=== PATIENT | female | born 1950 | race Hispanic/Latino ===

== ENCOUNTER 2022-07-04 03:56 | Emergency (ER) | payer OTHER ==
--- OUTSIDE RECORDS SUMMARY | 2022-07-04 03:59 | XMS REPORT | Clinical Summary ---
:1950 Author Organization [facility] MD [facility] Address [address] [place] [address] Care Team Providers Name Role Phone Laron Lambert MD Unavailable Raj Mansfield MD Primary Care Provider Allergies Active Allergy Reactions Severity Noted Date Comments Levofloxacin GI Intolerance 01/02/2021 Medications Medication Sig Dispensed Refills Start End Date Status Date atorvastatin daily. 5 Active (LIPITOR) 10 mg 9 tablet losartan-hydrochlor daily. 0 Active othiazide (HYZAAR) 100-25 mg per tablet gabapentin Take 3 270 capsule 2 Active (NEURONTIN) 300 mg capsules (900 0 capsuleIndications: mg) by mouth Malignant neoplasm 3 (three) of endometrium, times a day. Encounter for examination prior to antineoplastic chemotherapy, Hypokalemia, Hypomagnesemia, Generalized anxiety disorder, Pain, Nausea with vomiting, Malignant neoplasm of right kidney, except renal pelvis, Encounter for antineoplastic chemotherapy, Bilateral hearing loss, not otherwise specified metFORMIN twice daily. 0 Active (GLUCOPHAGE) 1000 1 mg tablet ferrous sulfate 324 0 Active mg (65 mg iron) 1 TbEC citalopram (CeleXA) TAKE 1 TABLET 0 Active 10 mg tablet BY MOUTH 2 EVERY DAY FOR 90 DAYS ofloxacin (FLOXIN) INSTILL 4 0 03/24/20 D iscontinued 0.3% otic solution DROPS INTO 2 22 (Not Applicable) LEFT EAR 2 TIMES A DAY Active Problems Problem Noted Date Screening for malignant neoplasms of colon 04/09/2021 Overview: Added automatically from request for alejandra lr [id number] Renal mass 12/31/2020 Anemia 12/31/2020 Clear cell carcinoma of kidney 12/31/2020 Chronic diarrhea 08/13/2020 History of malignant neoplasm of endometrium 0 Pain in left ankle 08/29/2019 Generalized muscle weakness 07/22/2019 Cancer-related fatigue 07/22/2019 Drug-induced polyneuropathy 07/18/2019 Hypomagnesemia 05/16/2019 Generalized anxiety disorder 05/16/2019 Paraparesis 05/02/2019 Hypokalemia 03/15/2019 Malignant neoplasm of right kidney, except renal pelvi s 03/15/2019 Hypertension 02/11/2019 Hyperlipidemia 02/11/2019 Type 2 diabetes mellitus 02/11/2019 Gallstone 02/11/2019 H/O: section 02/11/2019 Overview: x4 Postmenopausal atrophic vaginitis 02/11/2019 Hearing loss 02/11/2019 Malignant neoplasm of endometrium 02/11/2019 Cancer Staging: Clinical stage from 03/01: Stage IIIC1 (Primary) - Signed by Raj Mansfield MD on 04/11/2019 Encounters Date Type Specialty Care Team Description 03/31/2022 Orders Only Urology Aleksandra Olvera Malignant ne oplasm A., PA of unspecified kidney, except renal pelvis (Primary Dx) 03/24/2022 Office Visit Gynecology Raj Mansfield MD Malignant neoplasm of endometrium (Primary Dx) 03/24/2022 Office Visit Urology Aleksandra Olvera Malignant ne oplasm A., PA of unspecified kidney, except renal pelvis 03/24/2022 Ancillary Procedure Radiology Aleksandra Olverat neoplasm A., PA of unspecified kidney, except renal pelvis 03/24/2022 Ancillary Procedure Radiology Aleksandra Olvera nant neoplasm A., PA of unspecified kidney, except renal pelvis 03/24/2022 Travel 02/28/2022 Telephone Urology Radha Aleaxndra RN 02/19/2022 Orders Only Urology Aleksandra Olvera Malignant ne oplasm A., PA of unspecified kidney, except renal pelvis (Primary Dx) 02/18/2022 Orders Only Gynecology Maya Burgos PA Malignant ne oplasm of endometrium (Primary Dx) 02/06/2022 Telephone Surgical Oncology Danielle Scott RN 12/16/2021 Telephone Surgical Oncology Danielle Scott, RN 11/12/2021 Telephone Surgical Oncology Danielle Scott, RN 10/14/2021 Telephone Surgical Oncology Reanna Tucker, RN 07/12/2021 Telemedicine Urology Lenka Ortiz MD Renal mass after 07/04/2021 Immunizations Name Administration Dates Next Due Pfizer SARS-CoV-2 Vaccination (Purple Cap) 09/01/2020, 0212/2020 Surgical History Surgery Date Site/Laterality Comments HERNIA REPAIR 07/06/2017 - umbilical hernia 07/05/2018 repair CHOLECYSTECTOMY 07/06/2014 - lap 07/05/2015 SECTION, CLASSIC X4 ROBOTIC LAPAROSCOPIC 03/01/2019 STAGE IIIC serous HYSTERECTOMY carcinoma ABDOMINAL ADHESION SURGERY 03/01/2019 BILATERAL SALPINGOOPHORECTOMY 03/01/2019 MAMMOGRAM HISTORICAL 12/04/2018 - 01/02/2019 Medical History Medical History Date Comments Hypertension Hearing loss Menopause late 40s Uterine leiomyoma Diabetes mellitus Chronic obstructive pulmonary disease Family History Medical History Relation Name Comments Stomach cancer Brother Relation Name Status Comments Brother Social History Tobacco Use Types Packs/Day Years Used Date Smoking Tobacco: Former Cigarettes 1.5 0 1964 - 2015 Smokeless Tobacco: Never Alcohol Use Standard Drinks/Week Comments Not Currently 0 (1 standard drink = 0.6 oz pure alcoho l) Sex Assigned at Date Recorded Female 02/13/2019 7:44 AM CDT Job Start Date Occupation Industry Not on file Not on file Not on file Obstetrics History Para Term AB IAB SAB Ectopic Multiple Living Live Births 4 4 Date Outcome GA Total Labor/2nd/3rd Weight Sex Delivery Anes PTL Marge A 1 A5 Name Clin Labor Para Para Para Para Comments All C/S deliveries Last Filed Vital Signs Vital Sign Reading Time Taken Comments Blood Pressure 136/82 03/24/2022 11:30 AM CDT Pulse 96 03/24/2022 11:30 AM CDT Temperature 36.6 C (97.8 F) 03/24/2022 11:30 AM CDT Respiratory Rate 18 03/24/2022 11:30 AM CDT Oxygen Saturation - - Inhaled Oxygen Concentration - - Weight 87.8 kg (193 lb 9 oz) 03/24/2022 11:30 AM CDT Height - - Body Mass Index 39.28 12/30/2020 5:01 PM CDT Plan of Treatment Date Type Specialty Care Team Description 09/22/2022 Lab Lab Raj Mansfield M D [address] [place], [place] [address] (Wo rk) 09/22/2022 Follow-Up Gynecology Raj Mansfield M D [address] [place], [place] [address] (Wo rk) 03/22/2023 Appointment Radiology Aleksandra Olvera PA [address] [place], [place] [address] (Wo rk) 03/23/2023 Ancillary Procedure Radiology Dasha Olvera PA [address] [place], [place] [address] (Wo rk) 03/23/2023 Lab Lab Aleksandra Olvera PA [address] [place] [address] (Wo rk) 03/23/2023 Follow-Up Urology Aleksandra Olvera PA [address] [place], [place] [address] (Wo rk) Health Maintenance Due Date Last Done Comments COVID-19 Vaccination (3 - Pfizer risk 09/29/2020 09/01/2020 , 08/11/2020 series) Procedures Procedure Name Priority Date/Time Associated Comments Diagnosis FRACTIONATED BILIRUBIN Routine 03/24/2022 10:27 Malignant neop lasm Results for this AM CDT of unspecified procedure are in kidney, except the results renal pelvis section. TOTAL PROTEIN Routine 03/24/2022 10:27 Malignant neoplasm Resu lts for this AM CDT of unspecified procedure are in kidney, except the results renal pelvis section. ASPARTATE Routine 03/24/2022 10:27 Malignant neoplasm Resul ts for this AMINOTRANSFERASE AM CDT of unspecified procedure are in kidney, except the results renal pelvis section. ALANINE AMINOTRANSFERASE Routine 03/24/2022 10:27 Malignant ne oplasm Results for this AM CDT of unspecified procedure are in kidney, except the results renal pelvis section. ALKALINE PHOSPHATASE Routine 03/24/2022 10:27 Malignant neopla sm Results for this AM CDT of unspecified procedure are in kidney, except the results renal pelvis section. ALBUMIN LEVEL Routine 03/24/2022 10:27 Malignant neoplasm Resu lts for this AM CDT of unspecified procedure are in kidney, except the results renal pelvis section. CALCIUM LEVEL TOTAL Routine 03/24/2022 10:27 Malignant neoplas m Results for this AM CDT of unspecified procedure are in kidney, except the results renal pelvis section. .GLOMERULAR FILTRATION Routine 03/24/2022 10:27 Malignant neop lasm Results for this RATE AM CDT of unspecified procedure are in kidney, except the results renal pelvis section. SERUM CREATININE Routine 03/24/2022 10:27 Malignant neoplasm R esults for this AM CDT of unspecified procedure are in kidney, except the results renal pelvis section. ELECTROLYTE PANEL Routine 03/24/2022 10:27 Malignant neoplasm Results for this AM CDT of unspecified procedure are in kidney, except the results renal pelvis section. BLOOD UREA NITROGEN Routine 03/24/2022 10:27 Malignant neoplas m Results for this AM CDT of unspecified procedure are in kidney, except the results renal pelvis section. GLUCOSE LEVEL Routine 03/24/2022 10:27 Malignant neoplasm Resu lts for this AM CDT of unspecified procedure are in kidney, except the results renal pelvis section. COMPLETE BLOOD COUNT W/ Routine 03/24/2022 10:27 Malignant collins plasm Results for this INDICES AM CDT of unspecified procedure are in kidney, except the results renal pelvis section. COMPREHENSIVE METABOLIC Routine 03/24/2022 10:27 Malignant collins plasm PANEL AM CDT of unspecified kidney, except renal pelvis CANCER ANTIGEN 125 Routine 03/24/2022 10:27 Malignant neoplasm Results for this AM CDT of endometrium procedure are in the results section. XR CHEST 2 VW Routine 03/24/2022 9:03 Malignant neoplasm Resul ts for this AM CDT of unspecified procedure are in kidney, except the results renal pelvis section. CT ABDOMEN W CONTRAST Routine 03/24/2022 8:57 Malignant neopl asm Results for this AM CDT of unspecified procedure are in kidney, except the results renal pelvis section. POC CREATININE Routine 03/24/2022 8:07 Results fo r this AM CDT procedure are i n the results section. after 07/04/2021 Results .Serum Creatinine (03/24/2022 10:27 AM CDT) athologist Signature Creatinine 0.57 0.51 - 0.95 [place] mg/dL Comment: Testing performed at [facility], [address] [place] [address] Specimen Anatomical Collection Method Collection Time Receive d Time (Source) Location / / Volume Laterality Blood 03/24/2022 10:27 03/24/2022 AM CDT 10:27 AM CDT Aleksandra CRUZ LAB BLOOD ORDERABLES Performing Organization Address City/State/ZIP Code Phon e Number [address] Glomerular Filtration Rate (03/24/2022 10:27 AM CDT) athologist Signature eGFR-AA 109 >=60 [place] mL/min/1.73 sq. m Comment: Normal eGFR >= 60 mL/min/1.73 m2 Note: The eGFR is calculated using the C KD-EPI equation. The eGFR declines with age. eGFR <60 mL/min/1.73 m2 is considered as "decreased". This equation should only be used for patients 18 and older. According to the National Kid[employer] ion's Kidney Disease Outcome Quality Initiative (KDOQI) classification and 2012 Kidney Disease Improving Global Outcomes (KDIGO) Clinical Practice Guideline, the stage of CKD should be categorized based on estimated GFR. Stage Description GFR mL/min/1. 73 m2 1 Normal or high GFR >=90 2 Mildly decreased GFR 60-89 3a Mildly to moderately decreased GFR 45-59 3b Moderately to severely decreased GFR 30-44 4 Severely decreased GFR 15-29 5 Kidney failure <15 Testing performed at [facility], [address] [place], [place] [id number] eGFR-MALAIKA 94 >=60 mL/min/1.73 sq. m ABDI Jacqueline AND Comment: Normal eGFR >= 60 mL/min/1.73 m2 Note: The eGFR is calculated using the C KD-EPI equation. The eGFR declines with age. eGFR <60 mL/min/1.73 m2 is considered as "decreased". This equation should only be used for patients 18 and older. According to the National [employer] ion's Kidney Disease Outcome Quality Initiative (KDOQI) classification and 2012 Kidney Disease Improving Global Outcomes (KDIGO) Clinical Practice Guideline, the stage of CKD should be categorized based on estimated GFR. Stage Description GFR mL/min/1. 73 m2 1 Normal or high GFR >=90 2 Mildly decreased GFR 60-89 3a Mildly to moderately decreased GFR 45-59 3b Moderately to severely decreased GFR 30-44 4 Severely decreased GFR 15-29 5 Kidney failure <15 Testing performed at [facility], [address] [place] [address] Specimen Anatomical Collection Method Collection Time Receive d Time (Source) Location / / Volume Laterality Blood 03/24/2022 10:27 03/24/2022 AM CDT 10:27 AM CDT Aleksandra CRUZ LAB BLOOD ORDERABLES Performing Organization Address City/State/ZIP Code Phon e Number [address] Fractionated Bilirubin (03/24/2022 10:27 AM CDT) athologist Signature Bili Total <0.3 <=1.2 mg/dL [place] Comment: Direct and indirect bilirubin will not b e reported when Total bilirubin result is <0.3 mg/dL Indocyanine Green (ICG) may cause falsel y elevated bilirubin results. Total and direct bilirubin must not be measured from samples containing indocyanine green. False elevation of total bilirubin can b e seen in patients with IgG concentrations above 28 g/L. Testing performed at [facility], [address] [place] [address] Specimen Anatomical Collection Method Collection Time Receive d Time (Source) Location / / Volume Laterality Blood 03/24/2022 10:27 03/24/2022 AM CDT 10:27 AM CDT Aleksandra CRUZ LAB BLOOD ORDERABLES Performing Organization Address City/State/ZIP Code Phon e Number [address] (ABNORMAL) Complete Blood Count w/o Differential (03/24/2022 10:27 AM CDT) athologist Signature WBC 9.0 4.0 - 11.0 [place] [facility] K/uL Comment: All components of the CBC perfo rmed at [facility], [address] [place] [address] RBC 4.19 4.00 - 5.50 M/uL [place] Comment: As part of CBC testing performe d at [facility], [address] [place] [address] Hgb 11.5 (L) 12.0 - 16.0 gm/dL [place] Comment: As part of CBC or as an individ ual orderable testing performed at [facility], [address] [place] [address] Hct 35.4 (L) 37.0 - 47.0 % [place] Comment: As part of CBC or as an individ ual orderable testing performed at [facility], [address] [place] [address] MCV 84 82 - 98 fL [place] Comment: As part of CBC testing performe d at [facility], [address] [place] [address] MCH 27.4 27.0 - 31.0 pg [place] Comment: As part of CBC testing performe d at [facility], [address] [place] [address] MCHC 32.5 31.0 - 36.0 gm/dL [place] Comment: As part of CBC testing performe d at [facility], [address] [place] [address] RDW-SD 44.1 35.1 - 46.3 fL [place] Comment: As part of CBC testing performe d at [facility], [address] [place] [address] RDW-CV 14.7 12.0 - 15.5 % [place] Comment: As part of CBC testing performe d at [facility], [address] [place], [place] [address] Platelet count 268 140 - 440 K/uL [place] Comment: As part of CBC or as an individ ual orderable testing performed at [facility], [address] [place] [address] MPV 8.9 4.0 - 10.4 fL [place] Comment: As part of CBC testing performe d at [facility], [address] [place], [place] [address] Specimen Anatomical Collection Method Collection Time Receive d Time (Source) Location / / Volume Laterality Blood 03/24/2022 10:27 03/24/2022 AM CDT 10:27 AM CDT Aleksandra CRUZ LAB BLOOD ORDERABLES Performing Organization Address City/[facility] Code Phon e Number [address] [place] 125 (03/24/2022 10:27 AM CDT) P athologist Signature [place] 125 6.5 <=38.0 U/mL [place] Comment: Results greater than 11,500.0 U/L may no t be reliable due to matrix effect with extended dilution as it exceeds the airline radio operator s recommended limit. Caution should be exercised when interpreting such values and done in conjunction with cli nical context. Reference intervals are not available fo r male patients. Results should be interpreted in conjunction with clinical context. This test is measured by electrochemilum inescence immunoassay on Connie Michelle immunoassay analyzers. Results obtained in different methods are not interchangeable. Testing performed at [facility], [address] [place] [id number] Specimen Anatomical Collection Method Collection Time Receive d Time (Source) Location / / Volume Laterality Blood 03/24/2022 10:27 03/24/2022 AM CDT 10:27 AM CDT Maya CRUZ LAB BLOOD ORDERABLES Performing Organization Address City/[facility] Phon e Number [place] [phone] [place] [address] BUN (03/24/2022 10:27 AM CDT) athologist Signature BUN 13 6 - 23 mg/dL [place] Comment: Testing performed at [facility], [address] [place] [address] Specimen Anatomical Collection Method Collection Time Receive d Time (Source) Location / / Volume Laterality Blood 03/24/2022 10:27 03/24/2022 AM CDT 10:27 AM CDT Aleksandra CRUZ LAB BLOOD ORDERABLES Performing Organization Address City/State/ZIP Code Phon e Number [address] ALT (03/24/2022 10:27 AM CDT) athologist Signature ALT 16 <=33 U/L [place] Comment: Testing performed at [facility], [address] [place] [address] Specimen Anatomical Collection Method Collection Time Receive d Time (Source) Location / / Volume Laterality Blood 03/24/2022 10:27 03/24/2022 AM CDT 10:27 AM CDT Aleksandra CRUZ LAB BLOOD ORDERABLES Performing Organization Address City/State/ZIP Code Phon e Number [address] Aspartate Aminotransferase (03/24/2022 10:27 AM CDT) athologist Signature AST 15 <=32 U/L [place] Comment: Testing performed at [facility], [address] [place] [address] Specimen Anatomical Collection Method Collection Time Receive d Time (Source) Location / / Volume Laterality Blood 03/24/2022 10:27 03/24/2022 AM CDT 10:27 AM CDT Aleksandra CRUZ LAB BLOOD ORDERABLES Performing Organization Address City/State/ZIP Code Phon e Number [address] Total Protein (03/24/2022 10:27 AM CDT) athologist Signature Total Protein 7.4 6.4 - 8.3 [place] g/dL Comment: Testing performed at [facility], [address] [place] [address] Specimen Anatomical Collection Method Collection Time Receive d Time (Source) Location / / Volume Laterality Blood 03/24/2022 10:27 03/24/2022 AM CDT 10:27 AM CDT Aleksandra CRUZ LAB BLOOD ORDERABLES Performing Organization Address City/State/ZIP Code Phon e Number [address] Alkaline Phosphatase (03/24/2022 10:27 AM CDT) athologist [facility] Alk Phos 83 35 - 104 U/L [place] Comment: Testing performed at [facility], [address] [place] [address] Specimen Anatomical Collection Method Collection Time Receive d Time (Source) Location / / Volume Laterality Blood 03/24/2022 10:27 03/24/2022 AM CDT 10:27 AM CDT Aleksandra CRUZ LAB BLOOD ORDERABLES Performing Organization Address City/State/ZIP Code Phon e Number [address] (ABNORMAL) Glucose Level (03/24/2022 10:27 AM CDT) athologist Signature Glucose Level 133 (H) 70 - 99 [place] mg/dL Comment: Effective 01/30/16, the glucose reference intervals have been updated based on [place] [employer] guidelines (Standards of Medical Care in Diabetes 2016. Diabetes Care 2016; 39: S13-S22). Fasting blood glucose: Normal: 70-99 mg/dL Impaired fasting glucose (increased risk for diabetes or pre-diabetes): 100- 125 mg/dL Diabetes mellitus: >/=126 mg/dL Random blood glucose: Normal: 70-199 mg/dL Note: Random glucose >100 mg/dL is assoc iated with increased risk for diabetes Testing performed at [facility], [address] [place] [address] Specimen Anatomical Collection Method Collection Time Receive d Time (Source) Location / / Volume Laterality Blood 03/24/2022 10:27 03/24/2022 AM CDT 10:27 AM CDT Aleksandra CRUZ LAB BLOOD ORDERABLES Performing Organization Address City/[facility]/ZIP [place] [address] [place] [address] Calcium Level (03/24/2022 10:27 AM CDT) P athologist Signature Calcium Lvl 9.4 8.4 - 10.2 [place] mg/dL Comment: Testing performed at [facility], [address] [place] [address] Specimen Anatomical Collection Method Collection Time Receive d Time (Source) Location / / Volume Laterality Blood 03/24/2022 10:27 03/24/2022 AM CDT 10:27 AM CDT Aleksandra CRUZ LAB BLOOD ORDERABLES Performing Organization Address City/[facility]/ZIP Code Phon e Number [place] [phone] [place] [address] Albumin Level (03/24/2022 10:27 AM CDT) athologist Signature Albumin Lvl 4.2 3.5 - 5.2 [place] gm/dL Comment: Testing performed at [facility], [address] [place], [place] [id number] Specimen Anatomical Collection Method Collection Time Receive d Time (Source) Location / / Volume Laterality Blood 03/24/2022 10:27 03/24/2022 AM CDT 10:27 AM CDT Aleksandra CRUZ LAB BLOOD ORDERABLES Performing Organization Address City/State/ZIP Code Phon e Number [address] Electrolyte Panel (03/24/2022 10:27 AM CDT) P athologist Signature Sodium Lvl 140 136 - 145 [place] mEq/L Comment: Testing performed at [facility], [address] [place], [place] [id number] Potassium Lvl 3.5 3.5 - 5.1 mEq/L [place] Comment: Testing performed at [facility], [address] [place] [address] Chloride 100 98 - 107 mEq/L [place] Comment: Testing performed at [facility], [address] [place] [address] CO2 26 22 - 29 mEq/L [place] Comment: Testing performed at [facility], [address] [place] [id number] Anion Gap 14 4 - 14 mEq/L [place] Comment: Testing performed at [facility], [address] [place] [address] Specimen Anatomical Collection Method Collection Time Receive d Time (Source) Location / / Volume Laterality Blood 03/24/2022 10:27 03/24/2022 AM CDT 10:27 AM CDT Aleksandra CRUZ LAB BLOOD ORDERABLES Performing Organization Address City/State/[place] [address] [place] [address] X-ray Chest 2 Views (03/24/2022 9:03 AM CDT) Anatomical Region Laterality Modality Chest Digital Radiography Specimen (Source) Anatomical Collection Method Collection Time Re ceived Time Location / / Volume Laterality 03/24/2022 9:05 AM CDT Impressions 03/24/2022 9:08 AM CDT 1. Almost complete resolution of bilateral lower lung radiopacities, likely pneumonia and/or subsegmental atelectasis. 2. No metastatic disease. Narrative 03/24/2022 9:08 AM CDT FULL RESULT: Examination: XR Chest, 2 Views, 9:03 AM. Clinical History: Renal cell carcinoma. Indication: Restaging. Comparison: Portable AP chest, 12/29/2020 . Technique: PA, lateral and dual-energy c hest radiographs, 03/24/2022. Findings: Since the prior study, the bilateral low er lung radiopacities have mostly resolved. Minimal left basilar lung radiopacities still persist. No pleural effusion is present. The heart is mildly enlarged wi th atherosclerotic changes in the thorac ic aorta. Degenerative changes are present in the thoracic spine. Generalized osteoporosis is seen. Procedure Note Jaycob Siddiqi MD - 03/24/2022Formatti ng of this note might be different from the original. FULL RESULT: Examination: XR Chest, 2 Views, 2 9:03 AM. Clinical History: Renal cell carcinoma. Indication: Restaging. Comparison: Portable AP chest, 12/29/2020 . Technique: PA, lateral and dual-energy c hest radiographs, 03/24/2022. Findings: Since the prior study, the bilateral low er lung radiopacities have mostly resolved. Minimal left basilar lung radiopacities still persist. No pleural effusion is present. The heart is mildly enlarged with atherosclerotic changes in the thoracic aorta. Degenerative changes are present in the thoracic spine. Generalized osteoporosis is seen. IMPRESSION: 1. Almost complete resolution of bilater al lower lung radiopacities, likely pneumonia and/or subsegmental atelectasis. 2. No metastatic disease. Aleksandra CRUZ IMG DIAGNOSTIC IMAGING ORDER JUAN CT Abdomen with Contrast (03/24/2022 8:57 AM CDT) Anatomical Region Laterality Modality Abdomen Computed Tomography Specimen (Source) Anatomical Collection Method Collection Time Re ceived Time Location / / Volume Laterality 03/24/2022 10:00 AM CDT Impressions 03/24/2022 10:50 AM CDT 1 cm nodule at the left lung base not cl early present on previous exams. However, some of the prior exams do not include this portion of the lung bases. Recommend further evaluation with dedicated chest CT and possible tissue sampling. Right retroperitoneal hematoma as nearly resolved with some minimal residual infiltrative changes. Ablation changes at the inferior right kidney have significantly decreased in size during the interval. No evidence for metastatic disease in th e abdomen. Fatty infiltration of the liver. Narrative 03/24/2022 10:50 AM CDT Examination: CT ABDOMEN W CONTRAST, 03/24 8:57 AM Clinical History: Malignant neoplasm of unspecified kidney, except renal pelvis Indication: history of renal ablation, c haracterize any disease in the abdomen or in the ablation site Comparison: 12/28/20 Technique: CT of the abdomen was perform ed with intravenous contrast. Findings: 1 cm nodule in the left lung base (3 ser ies 6). This appears new relative to 12/24. Small hiatal hernia. Lipoma in the duodenum. Fatty infiltrati on of the liver. 1 cm hypodensity with peripheral nodular enhancement likely hemangioma. Cholecystectomy change. Pancreas, spleen , and adrenals are unremarkable. No hydronephrosis. Cyst at the upper pole at the right kidney. At the inferior pole of the right kidney hypoattenuating area mt ures 2.1 x 1.9 cm. Previously 5.7 x 4.7 cm. Adjacent retroperitoneal hematoma has nearly resolved with few retroperitoneal infiltrative changes. No enlarged para aortic lymph nodes. No dilated loops of bowel or ascites in the abdomen. Degenerative changes in the spine. Procedure Note Antonella Manning MD - 03/24/2022 Examination: CT ABDOMEN W CONTRAST, 03/24 8:57 AM Clinical History: Malignant neoplasm of unspecified kidney, except renal pelvis Indication: history of renal ablation, c haracterize any disease in the abdomen or in the ablation site Comparison: 12/28/20 Technique: CT of the abdomen was perform ed with intravenous contrast. Findings: 1 cm nodule in the left lung base (3 ser ies 6). This appears new relative to 12/24. Small hiatal hernia. Lipoma in the duodenum. Fatty infiltrati on of the liver. 1 cm hypodensity with peripheral nodular enhancement likely hemangioma. Cholecystectomy change. Pancreas, spleen , and adrenals are unremarkable. No hydronephrosis. Cyst at the upper pole at the right kidney. At the inferior pole of the right kidney hypoattenuating area measures 2.1 x 1.9 cm. Previously 5.7 x 4.7 cm. Adjacent re troperitoneal hematoma has nearly resolved with few retroperitoneal infiltrative changes. No enlarged para aortic lymph nodes. No dilated loops of bowel or ascites in the abdomen. Degenerative changes in the spine. IMPRESSION: 1 cm nodule at the left lung base not cl early present on previous exams. However, some of the prior exams do not include this portion of the lung bases. Recommend further evaluation with dedicated chest CT and possible tissue sampling. Right retroperitoneal hematoma as nearly resolved with some minimal residual infiltrative changes. Ablation changes at the inferior right kidney have significantly decreased in size during the interval. No evidence for metastatic disease in th e abdomen. Fatty infiltration of the liver. Aleksandra CRUZ IMG CT ORDERABLES POC Creatinine (03/24/2022 8:07 AM CDT) P athologist Signature POC Crea 0.7 0.6 - 1.3 POC [facility] mg/dL Comment: Medications, especially hydroxyurea or s upplements, such as ascorbate, can interfere with test results causing a falsely and significantly higher result than expected. If a problem is suspected with a patient's result, a sample should be sent to the laboratory for confirmatory testing. Method description: The i-STAT is an rashad lyzer used for in vitro quantification of various analytes in whole blood. The device uses a single disposable cartridge which contains microfabricated sensors, a calibration solution, fluidics system, and a waste chamber. Each test cartridge contains ch emically sensitive biosensors on a silicon chip that are configured to perform specific tests. The microfabricated sensors measure analyte concentration by an electrochemical assay. POC eGFR-AA 102 >=60 mL/min/1.73 m2 POC [facility] OR Comment: Normal eGFR >= 60 mL/min/1.73 m2 The eGFR is calculated using the CKD-EPI equation. The eGFR declines with age. eGFR <60 mL/min/1.73 m2 is considered as "decreased" This equation should only be used for patients 18 and older. According to the [employer]'s Kidney Disease Outcome Quality Initiative (KDOQI) classification and 2012 Kidney Disease Improving Global Outcomes (KDIGO) Clinical Practice Guideline, the stage of CKD should be categorized based on estimated GFR. Stage Description GFR mL/min/1.73 m2 1 Kidney damage with normal or high GFR >=90 2 Kidney damage with mild decrease in GF R 60-89 3a Mild to moderate decrease in GFR 45-59 3b Moderate to severe decrease in GFR 30-44 4 Severe decrease in GFR 15-29 5 Kidney failure <15 (or dialysis) POC eGFR-MALAIKA 88 >=60 mL/min/1.73 m2 POC [facility]EL [facility] Comment: Normal eGFR >= 60 mL/min/1.73 m2 The eGFR is calculated using the CKD-EPI equation. The eGFR declines with age. eGFR <60 mL/min/1.73 m2 is considered as "decreased" This equation should only be used for patients 18 and older. According to the National [employer]'s Kidney Disease Outcome Quality Initiative (KDOQI) classification and 2012 Kidney Disease Improving Global Outcomes (KDIGO) Clinical Practice Guideline, the stage of CKD should be categorized based on estimated GFR. Stage Description GFR mL/min/1.73 m2 1 Kidney damage with normal or high GFR >=90 2 Kidney damage with mild decrease in GF R 60-89 3a Mild to moderate decrease in GFR 45-59 3b Moderate to severe decrease in GFR 30-44 4 Severe decrease in GFR 15-29 5 Kidney failure <15 (or dialysis) POC Clean Dev Yes POC [facility] Performing Lab [facility] POC TELCO R Comment: [facility] [place] ,[address] [place] [address], [facility] Director: Marnie Victoria MD Specimen Anatomical Collection Method Collection Time Receive d Time (Source) Location / / Volume Laterality Blood 03/24/2022 8:07 AM 8:07 CDT AM CDT Aleksandra CRUZ POCT ORDERABLES - DEVICE Performing Organization Address City/State/ZIP Code Phon e Number POC [facility] after 07/04/2021 Insurance Payer Benefit Plan / Subscriber ID Effective Phone Address T ype Group Dates [facility] [employer] [facility] [id number] 2021-Pres [address] Medicare MEDICARE [place] [id number] [place] [address] [place] [id number] 2017-Pres [address] Medicaid [employer] ent [id number] [place] [address] Care Teams Supervisor [employer] Relationship Specialty Start Date End Date Laron Lambert PCP - External Primary Family Practice 01/13/19 MD [facility] Care Provider [address] [place] [id number] Raj Mansfield MD PCP - General Gynecological Oncology 01/13/[address] [place] [id number]
--- OUTSIDE RECORDS SUMMARY | 2022-07-04 04:00 | XMS REPORT | Continuity of Care Document ---
:1950 Author Organization [facility] t Address [address] [place] [address] Care Team Providers Name Role Phone [phone] Primary Care Physician Unavailable GERARDO SCOTT Attending Clinician Unavailable Aleksandra Simons Attending Clinician Singh Salcido MD Attending Clinician ALEKSANDRA VERA Attending Clinician Unavailable SINGH SALCIDO Attending Clinician Unavailable MAYA RYAN Attending Clinician Unavailable Brandyn Alexandra RN Attending Clinician Unavailable Maya Lancaster Attending Clinician Danielle Scott RN Attending Clinician Reanna Tucker RN L Attending Clinician Unavailable MILES CABA Attending Clinician Unavailable Miles Caba MD Attending Clinician LANCE DURAN Attending Clinician Unavailable JAVIER GOODE Attending Clinician Unavailable JILLIAN CUMMINS Attending Clinician Unavailable GERARDO SCOTT Admitting Clinician Unavailable MILES CABA Admitting Clinician Unavailable SAHRA RESENDEZ Admitting Clinician Unavailable Payers Payer Name Policy Type Policy Number Effective Date Expiration Date Meka olivia [facility] MEDICARE [id number] 2020 2021 MEDICAID DUAL HMO 00:00:00 00:00:00 [place]ICAID [place] [id number] 2017 TRADITIONAL STAR 00:00:00 PLUS SSI Problems Condition Condition Condition Status Onset Resolution Last Treating Co mments Source Name Details Category Date Date Treatment Clinician Date Screening Screening Disease Active 2020-07 Overview: Univers for for 0-05 Formattin ity of malignant malignant 00:00: g of this [place] neoplasms neoplasms 00 note MD of colon of colon might be Gabriel rso different n from the Cancer original. 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 of [place] 00 [place] Shan[place] soni [facility] Chronic Chronic Disease Active Univers diarrhea diarrhea 2-08 ity of 00:00: MD Shaniqua soni [facility] History of History of Disease Active 2019-0 U nivnilson malignant malignant 6-21 ity of neoplasm neoplasm 00:00: [place] of of 00 endometriu endometriu An dermia [facility] Pain in Pain in Disease Active 2019-0 Univers left ankle left ankle 2-24 it y of 00:00: 00 MD Shaniqua soni [facility] Generalize Generalize Disease Active 2020-0 U yandy d muscle d muscle 1-17 ity of weakness weakness 00:00: 00 MD Shaniqua soni [facility] Cancer-rel Cancer-rel Disease Active 2020-0 U yandy ated ated 1-17 ity of fatigue fatigue 00:00: 00 MD Shaniqua soni [facility] Drug-induc Drug-induc Disease Active 2020-0 U yandy ed ed 1-13 ity of polyneurop polyneurop [place] athy athy 00 MD Shaniqua soni [facility] Hypomagnes Hypomagnes Disease Active 2019- U yandy emia emia 1-11 ity of 00:00: 00 MD Shaniqua [facility]i [facility] Generalize Generalize Disease Active 2019- U yandy d anxiety d anxiety 1-11 ity of disorder disorder 00:00: 00 MD Shaniqua soni [facility] Chest pain Chest pain Disease Active 2019- [facility] Paraparesi Paraparesi Disease Active 2019- U yandy s s 0-28 ity of 00:00: 00 MD Shaniqua [facility]i [facility] Hypokalemi Hypokalemi Disease Active 2019 U nivers a a 9-10 ity of 00:00: 00 MD Shaniqua [facility]i [facility] Malignant Malignant Disease Active Uni vers neoplasm neoplasm 03-15 ity of of right of right 00:00: [place] kidney, kidney, 00 except except Shaniqua renal renal n pelvis pelvis Cancer Center Hypertensi Hypertensi Disease Active U nivers on on 02-11 ity of 00:00: [place] 00 MD Shaniqua soni [facility] Hyperlipid Hyperlipid Disease Active U nivers emia emia 02-11 ity of 00:00: 00 MD Shaniqua [facility]i [facility] Type 2 Type 2 Disease Active Univers diabetes diabetes 02-11 ity of mellitus mellitus 00:00: [place] 00 MD Shaniqua [facility]i [facility] Gallstone Gallstone Disease Active Uni vers 02-11 ity of 00:00: [place] 00 MD Shaniqua [facility]i [facility] H/O: H/O: Disease Active Overview: Univer s 02-11 Formattin ity of section section 00:00: g of this 00 note MD might be Shaniqua whitney n from the Cancer original. Center x4 Postmenopa Postmenopa Disease Active U nivers usal usal 02-11 ity of atrophic atrophic 00:00: [place] vaginitis vaginitis 00 MD Shaniqua [facility]i [facility] Hearing Hearing Disease Active Univers loss loss 02-11 ity of 00:00: 00 MD Shaniqua [facility]i [facility] Malignant Malignant Disease Active Uni vers neoplasm neoplasm 02-11 ity of of of 00:00: [place] endometriu endometriu 00 MD tha [facility]i [facility] Allergies, Adverse Reactions, Alerts Allergy Allergy Status Severity Reaction(s) Onset Inactive Treating Comm ents Source Name Type Date Date Clinician Levoflox Propensi Active GI Univer s acin ty to Intolerance 01-02 ity o f adverse 00:00: [place] reaction 00 MD meka [facility]i [facility] LEVOFLOX DRUG Active Nausea MD ACIN INGREDI 01-02 Anderso 00:00: n 00 LEVOFLOX DRUG Active Nausea MD ACIN INGREDI 6-30 Anderso 00:00: n 00 LEVOFLOX DRUG Active Nausea 2021-0 MD ACIN INGREDI 6-30 Anderso 00:00: n 00 LEVOFLOX DRUG Active Nausea 2021-0 MD ACIN INGREDI 6-30 Anderso 00:00: n 00 LEVOFLOX DRUG Active Nausea 2021-0 MD ACIN INGREDI 6-30 Anderso 00:00: n 00 LEVOFLOX DRUG Active Nausea 2021-0 MD ACIN INGREDI 6-30 Anderso 00:00: n 00 LEVOFLOX DRUG Active Nausea 2021-0 MD ACIN INGREDI 6-30 Anderso 00:00: n 00 LEVOFLOX DRUG Active Nausea 2021-0 MD ACIN INGREDI 6-30 Anderso 00:00: n 00 LEVOFLOX DRUG Active Nausea 2021-0 MD ACIN INGREDI 6-30 Anderso 00:00: n 00 LEVOFLOX DRUG Active Nausea 2021-0 MD ACIN INGREDI 6-30 Anderso 00:00: n 00 LEVOFLOX DRUG Active Nausea 2021-0 MD ACIN INGREDI 6-30 Anderso 00:00: n 00 LEVOFLOX DRUG Active Nausea 2021-0 MD ACIN INGREDI 6-30 Anderso 00:00: n 00 LEVOFLOX DRUG Active Nausea 2021-0 MD ACIN INGREDI 6-30 Anderso 00:00: n 00 LEVOFLOX DRUG Active Nausea 2021-0 MD ACIN INGREDI 6-30 Anderso 00:00: n 00 LEVOFLOX DRUG Active Nausea 2021-0 MD ACIN INGREDI 6-30 Anderso 00:00: n 00 LEVOFLOX DRUG Active Nausea 2021-0 MD ACIN INGREDI 6-30 Anderso 00:00: n 00 LEVOFLOX DRUG Active Nausea 2021-0 MD ACIN INGREDI 6-30 Anderso 00:00: n 00 LEVOFLOX DRUG Active Nausea 2021-0 MD ACIN INGREDI 6-30 Anderso 00:00: n 00 LEVOFLOX DRUG Active Nausea 2021-0 MD ACIN INGREDI 6-30 Anderso 00:00: n 00 Family History Family Member Diagnosis Comments Start Date Stop Date Source Natural brother Stomach cancer [facility] MD Anjel Lara [facility] Natural brother [facility]pertension [facility] Natural sister Diabetes [facility] Social History Social Habit Start Date Stop Date Quantity Comments Source History SDOH [facility] Alcohol Std Drinks Medica l Center History SDOH [facility] Alcohol Binge Medical Mike ter History SDOH [facility] Alcohol Comment Medical C enter History of tobacco Current smoker Un iversity of use [place] MD Rico nava [facility] Tobacco use and 2019-05-09 2019-05-[address] [facility] [facility] exposure 00:00:00 00:00:00 [facility] Alcohol intake 2019-05-09 2019-05-[address] [facility] 00:00:00 00:00:00 non-drinker of Medical Ce nter alcohol (finding) History SDOH 2019-05-09 2019-05-[address] [facility] Alcohol Frequency 00:00:00 00:00:00 [facility] Tobacco Comment 2019-05-09 2019-05-09 quit [address] [facility] 00:00:00 00:00:00 ago [facility] Cigarettes smoked 2019-02-14 2019-02-14 Univers ity of current (pack per 00:00:00 00:00:00 [place] Tha Saldana ) - Reported Cancer Ce nter Cigarette 2019-02-14 2019-02-14 University of pack-years 00:00:00 00:00:00 Gustavo nava [facility] Sex Assigned At [address] [facility] 00:00:00 00:00:00 [facility] Smoking Status Start Date Stop Date Source Ex-smoker 2019-02-14 00:00:00 2019-02-14 00:00:00 [facility] Medications Ordered Filled Start Stop Current Ordering Indication Dosage Frequency Signature Comments Components Source Medication Medication Date Date Medication? Clinician (SIG) Name Name losartan-hy Yes daily. Univ ers drochloroth 03-24 ity of iazide 11:58: Gustavo (HYZAAR) 53 100-25 mg Anderso per tablet n [facility] ofloxacin 2021- INSTILL 4 Un bety (FLOXIN) 03-17 DROPS INTO ity of 0.3% otic 00:00: 00:00 LEFT EAR 2 [place] solution 00 :00 TIMES A MD MORELIA soni [facility] citalopram Yes TAKE 1 Unive rs (CeleXA) 10 7-05 TABLET BY ity of mg tablet 00:00: MOUTH [place] 00 EVERY DAY FOR 90 Anderso DAYS n Cancer Center ferrous 2020-07 Yes Univers sulfate 324 2-02 ity of mg (65 mg 00:00: [place] iron) TbEC 00 MD Shaniqua soni [facility] metFORMIN Yes twice Univers (GLUCOPHAGE 4-08 daily. ity of ) 1000 mg 00:00: [place] tablet 00 MD Shaniqua soni [facility] [place] gabapentin Yes Bilateral 900mg Take 3 Univers (NEURONTIN) 8-13 hearing capsules i ty of 300 mg 00:00: loss, not (900 mg) [place] capsule 00 otherwise by mouth 3 M D specified (three) Anderso times a n day. Cancer Center pantoprazol 2018-07 Yes 40mg QD Take [address] [facility] 1-06 tablet (40 [facility] (PROTONIX) 00:00: mg total) Me dical 40 MG 00 by mouth Center tablet daily. metFORMIN 2018-07 Yes 500mg Take [address] (GLUCOPHAGE 1-05 mg by [facility]ukes ) 500 MG 16:15: mouth 2 Medica l tablet 05 (two) Center times daily with breakfast and dinner. atorvastati 2018-07 Yes 10mg QD Take [address] n (LIPITOR) 1-05 by mouth Luke s 80 MG 16:15: daily. Medical tablet 05 Center losartan-hy 2018-07 Yes 1{tbl} QD Take [address] droCHLOROth 1-05 tablet by Lennie es iazide 16:15: mouth Medical (HYZAAR) 05 daily. Center 100-25 mg per tablet ondansetron 2018-07 Yes Take by [facility] (ZOFRAN) 8 1-05 mouth [facility]ukes MG tablet 16:15: every 8 Medic al 05 (eight) Center hours as needed for Nausea. prochlorper 2018-07 Yes 10mg Take [address] azine 1-05 by mouth [facility]ukes (COMPAZINE) 16:15: every 6 Med ical 10 MG 05 (six) Center tablet hours as needed. atorvastati Yes daily. Univ ers n (LIPITOR) 6-04 ity of 10 mg 00:00: [place] tablet 00 MD Shaniqua soni [facility] Immunizations Ordered Filled Immunization Date Status Comments Sour e Immunization Name Name Dataguise SARS-CoV-2 2020-09-01 Completed Univer sity of Vaccination (Purple 00:00:00 [facility] Pfizer SARS-CoV-2 2020-08-11 Completed Univer sity of Vaccination (Purple 00:00:00 [facility] Vital Signs Vital Name Observation Time Observation Value Comments Source Systolic blood 2022-03-24 16:30:00 136 mm[Hg] Univer sity of pressure [place] MD Martinez on [facility] Diastolic blood 2022-03-24 16:30:00 82 mm[Hg] Unive rsity of pressure [place] MD Martinez on [facility] Heart rate 2022-03-24 16:30:00 96 /[facility] MD Martinez on [facility] Body temperature 2022-03-24 16:30:00 36.56 [facility] Martinez on [facility] Respiratory rate 2022-03-24 16:30:00 18 /min [facility] Body weight 2022-03-24 16:30:00 87.8 kg Universi ty [facility] MD Martinez on [facility] BMI 2022-03-24 16:30:00 39.28 kg/m2 Universi ty [facility] MD Martinez on [facility] Procedures Procedure Date / Time Performing Clinician Source Performed CANCER ANTIGEN 125 2022-03-24 15:27:54 Maya Ryan [facility] COMPREHENSIVE METABOLIC 2022-03-24 15:27:54 Aleksandra Vera [facility] PANEL [facility] COMPLETE BLOOD COUNT W/ 2022-03-24 15:27:54 [facility] GLUCOSE LEVEL 2022-03-24 15:27:54 [facility] BLOOD UREA NITROGEN 2022-03-24 15:27:54 [facility] ELECTROLYTE PANEL 2022-03-24 15:27:54 Aleksandra Vera [facility] SERUM CREATININE 2022-03-24 15:27:54 [facility] .GLOMERULAR FILTRATION 2022-03-24 15:27:54 Ale[address] [facility] CALCIUM LEVEL TOTAL 2022-03-24 15:27:54 Aleksandra Vera [facility] ALBUMIN LEVEL 2022-03-24 15:27:54 Aleksandra Vera [facility] [place] [facility] ALKALINE PHOSPHATASE 2022-03-24 15:27:54 Aleksandra Vera [facility] ALANINE AMINOTRANSFERASE 2022-03-24 15:27:54 Aleksandra Vera [facility] ASPARTATE AMINOTRANSFERASE 2022-03-24 15:27:54 Aleksandra Vera [facility] TOTAL PROTEIN 2022-03-24 15:27:54 Aleksandra Vera [facility] [place] [facility] FRACTIONATED BILIRUBIN 2022-03-24 15:27:54 [facility] CHEST 2 VW 2022-03-24 14:03:53 Aleksandra Vera [facility] [place] [facility] CT ABDOMEN W CONTRAST 2022-03-24 13:57:00 Aleksandra Vera [facility] POC CREATININE 2022-03-24 13:07:00 Aleksandra Vera [facility] [place] [facility] Plan of Care Planned Activity Planned Date Details Comments Source Future Scheduled 2022-04-21 COVID-19 Vaccination Uni [facility] Test 13:27:56 (3 - Pfizer risk [facility] Cancer series) [code = Center COVID-19 Vaccination (3 - Pfizer risk series)] Encounters Start End Encounter Admission Attending Care Care Encounter Source Date/Time Date/Time Type Type Clinicians Facility Department ID 2021-04-09 Outpatient PETER SCOTT [facility]/Hep/Nu [id number] 18:55:41 GERARDO duque Andnilsono n 2022-03-31 2022-03-31 Orders Wade 1.2.840.1 [id number] Univers 00:00:00 00:00:00 Only Aleksandra 97135.1.1 it y of A. 3.412.2.7 [place] .3.280744 MD Martinez8 [facility] 2022-03-24 2022-03-24 Office Donal, 1.2.840.1 [id number] Univers 13:30:00 13:30:00 Visit Singh 68136.1.1 ity of 3.412.2.7 [place] .3.146823 MD Martinez8 [facility] 2022-03-24 2022-03-24 Office Wade, 1.2.840.1 [id number] Univers 13:00:00 13:00:00 Visit Aleksandra Garay50.1.1 it y of A. 3.412.2.7 Gustavo .[id number] MD Martinez8 [facility] 2022-03-24 2022-03-24 Outpatient PETER VERA MDA MDA [id number] 11:56:44 11:57:08 ALEKSANDRA soni 2022-03-24 2022-03-24 Outpatient PETER SALCIDO MDA MDA [id number] 10:44:32 11:39:36 SINGH soni 2022-03-24 2022-03-24 Outpatient MAYA TERESA MDA MDA [id number] 10:18:42 10:27:33 Juan snoi 2022-03-24 2022-03-24 Ancillary Wade 1.2.840.1 [id number] [facility] 10:00:00 10:15:00 Procedure Aleksandra 18723.1.1 ity of A. 3.412.2.7 Gustavo .3.727783 MD Martinez8 [facility] 2022-03-24 2022-03-24 Hari Vera 1.2.840.1 [id number] Univers 07:15:00 09:40:00 Procedure Aleksandra 64132.1.1 ity of A. 3.412.2.7 [place] .3.170126 MD Fair [facility] 2022-03-24 2022-03-24 Outpatient PETER VERA [facility] MDA [id number] 07:13:26 07:13:26 ALEKSANDRA [facility] 2022-03-24 2022-03-24 Outpatient PETER VEAR [facility] MDA [id number] 07:12:51 07:12:51 ALEKSANDRA R[facility] 2022-03-24 2022-03-24 Travel 1.2.840.1 [id number] Univers 00:00:00 00:00:00 37682.1.1 350.1.13.41 ity of 3.412.2.7 2.[place].7.3.698 [place] .3.259071 084.8 MD Fair [facility] 2022-02-28 2022-02-28 Telephone Ibrahima, 1.2.840.1 [id number] Univers 00:00:00 00:00:00 Lulu 37773.1.1 ity of 3.412.2.7 [place] .3.763123 MD Fair [facility] 2022-02-19 2022-02-19 Kathryn Vera 1.2.840.1 [id number] Univers 00:00:00 00:00:00 Only Aleksandra 77693.1.1 it y of A. 3.412.2.7 [place] .3.069878 MD Fair [facility] 2022-02-18 2022-02-18 Maya Avalos 1.2.840.1 [id number] Univers 00:00:00 00:00:00 Only 08222.1.1 ity of 3.412.2.7 [place] .3.226434 MD Fair [facility] 2022-02-06 2022-02-06 Telephone [place], 1.2.840.1 [id number] Univers 00:00:00 00:00:00 Danielle Phillips 86609.1.1 it y of 3.412.2.7 [place] .3.297651 .8 [facility] 2021-12-16 2021-12-16 Telephone [place], 1.2.840.1 [id number] Univers 00:00:00 00:00:00 Danielle L 56778.1.1 it y of 3.412.2.7 [place] .3.866207 .8 [facility] 2021-11-12 2021-11-12 Telephone [place], 1.2.840.1 [id number] Univers 00:00:00 00:00:00 Danielle L 30488.1.1 it y of 3.412.2.7 [place] .3.334703 .8 [facility] 2021-10-14 2021-10-14 Telephone Caitlin, 1.2.840.1 [id number] Univers 00:00:00 00:00:00 Reanna L 44048.1.1 ity of 3.412.2.7 [place] .3.654325 .8 [facility] 2021-07-15 2021-07-15 Outpatient PETER CABA MDA MDA [id number] 10:41:46 10:41:46 MILES soni 2021-07-12 2021-07-12 Telemedic Rosales, 1.2.840.1 [id number] Univers 08:45:00 09:15:00 ne Miles 67514.1.1 ity of 3.412.2.7 [place] .3.252504 .8 [facility] 2021-04-08 2021-04-08 Outpatient EL RACHEL RAMOS [id number] 10:42:55 13:46:54 Juan soni 2021-04-08 2021-04-08 Outpatient PETER SALCIDO MDA MDA [id number] 09:45:39 09:45:39 SINGH soni 2021-04-08 2021-04-08 Outpatient EL MAYA RYAN MDA MDA [id number] 09:33:30 09:42:54 Juan soni 2021-01-29 2021-01-29 Outpatient EL ROSALES, MDA MDA [id number] MD 11:19:21 12:15:03 MILES soni 2021-01-29 2021-01-29 Outpatient PETER VERA, MDA MDA [id number] MD 10:32:03 10:46:43 ALEKSANDRA dutta n 2021-01-03 2021-01-03 Outpatient PETER SALCIDO, MDA MDA [id number] 11:02:10 23:59:00 SINGH soni 2020-12-27 2020-12-31 Inpatient EL ROSALES, MDA Urology [id number] 11:31:00 15:35:00 MILES soni 2020-12-28 2020-12-28 Inpatient EL ROSALES, MDA MDA [id number] MD 14:56:19 15:15:38 MILES soni 2020-12-26 2020-12-26 Outpatient PETER SALCIDO, MDA MDA [id number] MD 13:15:00 23:59:00 SINGH soni 2020-12-26 2020-12-26 Outpatient EL ROGER, MDA MDA [id number] MD 10:44:24 13:14:00 LANCE Martinez o nae 2020-12-26 2020-12-26 Outpatient EL ROGER, MDA MDA [id number] MD 10:43:44 10:43:44 LANCE Leeers o nae 2020-12-26 2020-12-26 Outpatient EL ROGER, MDA MDA [id number] MD 09:59:10 10:26:48 LANCE Leeers o nae 2020-12-25 2020-12-25 Outpatient MAYA TERESA MDA MDA [id number] 14:28:41 14:28:41 Juan o nae 2020-10-02 2020-10-02 Outpatient EL MAYA RYAN MDA MDA [id number] 07:38:50 07:38:50 Juan o nae 2020-04-02 2020-04-02 Outpatient PETER VERA, MDA MDA [id number] MD 00:00:00 00:00:00 ALEKSANDRA thapao n 2020-04-02 2020-04-02 Outpatient EL VERA, MDA MDA [id number] MD 00:00:00 00:00:00 ALEKSANDRA Rios tra soni 2019-12-30 2019-12-30 Outpatient MAYA TERESA MDA MDA [id number] 12:53:46 23:59:00 Juannilson soni 2019-12-26 2019-12-26 Outpatient MAYA TERESA MDA MDA [id number] 10:59:50 11:01:06 Juan mehdi soni 2019-12-26 2019-12-26 Outpatient PETER GOODE MDA MDA [id number] 08:38:34 08:42:41 JAVIER soni Results Test Description Test Time Test Comments Results Result Comments Source POC Creatinine 2022-03-24 13:09:51 Test Item Value Reference Range Interpretation Comme nts POC Crea (test code = 0.7 mg/dL 0.6-1.3 Medica tions, especially 00921-1) hydroxyurea or supplements, such as ascorba te, can interfere with test results causing a false ly and significantly h igher result than expected. If a problem is suspected with a patient's result, a sampl e should be sent to the lab oratory for confirmatory te sting. Method description: Th e i-STAT is an analyzer used f or in vitro quantification of various analytes in who le blood. The device uses a s abbie disposable cart ridge which contains microf abricated sensors, a kenya bration solution, fluid ics system, and a waste chamber . Each test cartridge conta ins chemically sensitive biose nsors on a silicon chip th at are configured to p erform specific tests. The micr ofabricated sensors measure analyte concentration b y an electrochemical assay. POC eGFR-AA (test code = 102 See_Comment Nor mal eGFR >= 60 mL/min/1.73 83513-3) m2 The eGFR is calculated using the CKD-E PI equation. The eGFR declin es with age. eGFR <60 mL/min /1.73 m2 is considered as " decreased" This equation should only be used for patients 18 and older. According to th e National Kidney Foundati on's Kidney Disease Outcome Quality Initiative (KDO QI) classification and 2012 Kidney Disease Improvi ng Global Outcomes (KDIGO ) Clinical Practice Guidel ine, the stage of CKD should b e categorized based on estima federico GFR. Stage Description GFR mL/min/1.73 m21 Kidney kyle ge with normal or high GFR >=9 02 Kidney damage with mil d decrease in GFR 60-893a Mil d to moderate decrease in GFR 45-593b Moderate to sev ere decrease in GFR 30-444 Jesica re decrease in GFR 15-295 Kidn ey failure <15 (or dialysis) [ Automated message] The sy stem which generated this result transmitted ref erence range: >=60 mL/min/1.7 3 m2. The reference range was not used to interpret th is result as normal/abnormal . POC eGFR-MALAIKA (test code = 88 See_Comment No rmal eGFR >= 60 mL/min/1.73 22681-6) m2 The eGFR is calculated using the CKD-E PI equation. The eGFR declin es with age. eGFR <60 mL/min /1.73 m2 is considered as " decreased" This equation should only be used for patients 18 and older. According to th e National Kidney Foundati on's Kidney Disease Outcome Quality Initiative (KDO QI) classification and 2012 Kidney Disease Improvi ng Global Outcomes (KDIGO ) Clinical Practice Guidel ine, the stage of CKD should b e categorized based on estima federico GFR. Stage Description GFR mL/min/1.73 m21 Kidney kyle ge with normal or high GFR >=9 02 Kidney damage with mil d decrease in GFR 60-893a Mil d to moderate decrease in GFR 45-593b Moderate to sev ere decrease in GFR 30-444 Jesica re decrease in GFR 15-295 Kidn ey failure <15 (or dialysis) [ Automated message] The sy stem which generated this result transmitted ref erence range: >=60 mL/min/1.7 3 m2. The reference range was not used to interpret th is result as normal/abnormal . POC Clean Dev (test code Yes = 6672) Performing Lab (test code [facility] of = 80191) Gustavo Martinez on[facility]Clinical Care [facility] ,[address], [place] [address], Point of Care Senior Accounting Manager: Daniel Victoria MD [facility] [place] [facility] [place] [id number] 13:01:00 Test Item Value Reference Range Interpretation Comments POC-GLUCOSE METER 123 mg/dL 70-110 H : TESTED A T [address] (BEAKER) (test code [address], = 1538) [facility] 77 478: Training Engineer/Techni radha ID = [id number] for Shantelle Taylor POCT-GLUCOSE [id number] 08:18:00 Test Item Value Reference Range Interpretation Comments POC-GLUCOSE METER 138 mg/dL 70-110 H : TESTED A T [address] (BEAKER) (test code [address], = 1538) [facility] 77 478: Training Engineer/Techni radha ID = [id number] for Shantelle Taylor TSH/FREE T4 IF [id number] 07:33:00 Test Item Value Reference Range Interpretation Comments THYROID STIMULATING HORMONE 0.57 uIU/mL 0.35-5.50 (BEAKER) (test code = 772) LIPID [id number] 06:49:00 Test Item Value Reference Range Interpretation Comments TRIGLYCERIDES (BEAKER) (test code = 110 mg/dL 540) CHOLESTEROL (BEAKER) (test code = 190 mg/dL 631) HDL CHOLESTEROL (BEAKER) (test code 36 mg/dL = 976) LDL CHOLESTEROL CALCULATED ([facility]) 132 mg/dL (test code = 633) Triglyceride Reference Range: Low Risk <150 Borderline 150-199 High Risk 200- 499 Very High Risk >=500Cholesterol Reference Range: Low Risk <200 Borderline 200-239 High Risk >240HDL Cholesterol Reference Range: Low Risk >=60 High Risk <40LDL Cholesterol Reference Range: Optimal <100 Near Optimal 100-129 Borderline 130-159 High 160-189 Very High >=190TROPONIN I 2019-05-10 06:44:00 Test Item Value Reference Range Interpretation Comments TROPONIN I (BEAKER) (test code = 397) < ng/mL 0.00-0.15 Troponin I (TnI) levels must be interpreted in the context of the presenting symptoms and the clinical findings. Elevated TnI levels indicate myocardial damage, but are not specific for ischemic heart disease. Elevated TnI levels are seen in patients with other cardiac conditions (including myocarditis and congestive heart failure), and slight TnI elevations occur in patients with other conditions, including sepsis, renal failure, acidosis, acute neurological disease, and persistent tachyarrhythmia.HEPATIC FUNCTION [id number] 06:38:00 Test Item Value Reference Range Interpretation Comments TOTAL PROTEIN (BEAKER) (test code = 6.4 gm/dL 6.0-8.5 770) ALBUMIN (BEAKER) (test code = 1145) 3.5 g/dL 3.5-5.0 BILIRUBIN TOTAL (BEAKER) (test code 0.2 mg/dL 0.1-1.2 = 377) BILIRUBIN DIRECT (BEAKER) (test 0.1 mg/dL 0.0-0.4 code = 706) ALKALINE PHOSPHATASE (BEAKER) (test 66 U/L 30-115 code = 346) AST (SGOT) (BEAKER) (test code = 13 U/L 5-40 353) ALT (SGPT) (BEAKER) (test code = 23 U/L 5-50 347) HEMOGLOBIN [id number] 06:37:00 Test Item Value Reference Range Interpretation Comments HEMOGLOBIN A1C (BEAKER) (test code = 6.7 % 4.3-6.1 H 368) BASIC METABOLIC [id number] 06:36:00 Test Item Value Reference Range Interpretation Comments SODIUM (BEAKER) 142 meq/L 135-148 (test code = 381) POTASSIUM (BEAKER) 3.8 meq/L 3.6-5.5 (test code = 379) CHLORIDE (BEAKER) 107 meq/L 98-106 H (test code = 382) CO2 (BEAKER) (test 27 meq/L 20-29 code = 355) BLOOD UREA NITROGEN 16 mg/dL 10-26 (BEAKER) (test code = 354) CREATININE (BEAKER) 0.65 mg/dL 0.50-1.20 (test code = 358) GLUCOSE RANDOM 150 mg/dL 70-110 H (BEAKER) (test code = 652) CALCIUM (BEAKER) 8.4 mg/dL 8.5-10.5 L (test code = 697) EGFR (BEAKER) (test 91 mL/min/1.73 ESTIMA FEDERICO GFR IS code = 1092) sq m NOT ACCURATE CREATININE CLEARANCE IN PREDICTING GLOMERULAR FILTRATION RATE . ESTIMATED GFR I S NOT APPLICABLE FOR DIALYSIS PATIEN TS. CBC W/PLT COUNT & AUTO [id number] 06:24:00 Test Item Value Reference Range Interpretation Comments WHITE BLOOD CELL COUNT (BEAKER) 7.8 K/ L 4.0-10.0 (test code = 775) RED BLOOD CELL COUNT (BEAKER) 4.10 M/ L 4.00-5.00 (test code = 761) HEMOGLOBIN (BEAKER) (test code = 10.7 GM/DL 12.0-15.5 L 410) HEMATOCRIT (BEAKER) (test code = 34.4 % 36.0-46.0 L 411) MEAN CORPUSCULAR VOLUME (BEAKER) 83.9 fL 82.0-99.0 (test code = 753) MEAN CORPUSCULAR HEMOGLOBIN 26.1 pg 27.0-33.0 L (BEAKER) (test code = 751) MEAN CORPUSCULAR HEMOGLOBIN CONC 31.1 GM/DL 32.0-36.0 L (BEAKER) (test code = 752) RED CELL DISTRIBUTION WIDTH 13.3 % 12.0-15.0 (BEAKER) (test code = 412) PLATELET COUNT (BEAKER) (test 299 K/CU MM 150-430 code = 756) MEAN PLATELET VOLUME (BEAKER) 9.3 fL 6.0-11.5 (test code = 754) NUCLEATED RED BLOOD CELLS 0 /100 WBC 0-0 (BEAKER) (test code = 413) NEUTROPHILS RELATIVE PERCENT 84 % (BEAKER) (test code = 429) LYMPHOCYTES RELATIVE PERCENT 11 % (BEAKER) (test code = 430) MONOCYTES RELATIVE PERCENT 4 % (BEAKER) (test code = 431) EOSINOPHILS RELATIVE PERCENT 0 % (BEAKER) (test code = 432) BASOPHILS RELATIVE PERCENT 0 % (BEAKER) (test code = 437) NEUTROPHILS ABSOLUTE COUNT 6.52 K/ L 1.80-8.00 (BEAKER) (test code = 670) LYMPHOCYTES ABSOLUTE COUNT 0.86 K/ L 1.48-4.50 L (BEAKER) (test code = 414) MONOCYTES ABSOLUTE COUNT (BEAKER) 0.31 K/ L 0.00-1.30 (test code = 415) EOSINOPHILS ABSOLUTE COUNT 0.00 K/ L 0.00-0.50 (BEAKER) (test code = 416) BASOPHILS ABSOLUTE COUNT (BEAKER) 0.00 K/ L 0.00-0.20 (test code = 417) IMMATURE GRANULOCYTES-RELATIVE 1 % 0-0 H PERCENT (BLANCA) (test code = 2801) TROPONIN [id number] 00:21:00 Test Item Value Reference Range Interpretation Comments TROPONIN I (BLANCA) (test code = 397) < ng/mL 0.00-0.15 Troponin I (TnI) levels must be interpreted in the context of the presenting symptoms and the clinical findings. Elevated TnI levels indicate myocardial damage, but are not specific for ischemic heart disease. Elevated TnI levels are seen in patients with other cardiac conditions (including myocarditis and congestive heart failure), and slight TnI elevations occur in patients with other conditions, including sepsis, renal failure, acidosis, acute neurological disease, and persistent tachyarrhythmia.POCT-GLUCOSE [id number] 23:16:00 Test Item Value Reference Range Interpretation Comments POC-GLUCOSE METER 159 mg/dL 70-110 H : TESTED A T [address] 1317 (BLANCA) (test code [address], = 1538) [facility] 77 478: Training Engineer/Techni radha ID = [id number] for Oyecam nino, Mary CT, CHEST WITH IV CONTRAST- PE TEST [id number] 19:14:00Reason for exam:- >CHEST PAINReason for exam:->SHORTNESS OF BREATHWhat is the patient's sedation requirement?->No SedationFINAL REPORT TECHNIQUE: CT scan of the chest WITH intravenous contrast. Dose modulation, iterative reconstruction, and/or weight-based adjustment of the mA/kV was utilized to reduce the radiation dose to as low as reasonably achievable. INDICATION: Shortness of breath. COMPARISON:None. FINDINGS: LINES/TUBES: None. PULMONARY ARTERIES: Proximal to the bifurcation of the main pulmonary artery, the main pulmonary artery is 2.5 cm in diameter. No filling defects within the pulmonaryarteries to suggest pulmonary embolus. LUNGS AND AIRWAYS: Mild bibasilar fibrotic changes. No airspace consolidation. Airways are clear. PLEURA: The pleural spaces are clear. HEART AND MEDIASTINUM: Thevisualized thyroid gland is normal. No significant mediastinal, hilar, or axillary lymphadenopathy. Heart is unremarkable. Mild atherosclerotic changes of the aorta without significant stenosis. SOFT TISSUES AND BONES: Unremarkable. UPPER ABDOMEN: Unremarkable. IMPRESSION:No pulmonary embolism. No acute cardiopulmonary abnormality. Signed: Mark Anthony Gomez MDReport Verified Date/Time: 05/09/2019 19:14:47 CBC W/PLT COUNT & AUTO [id number] 17:13:00 Test Item Value Reference Range Interpretation Comments WHITE BLOOD CELL COUNT (BEAKER) 8.4 K/ L 4.0-10.0 (test code = 775) RED BLOOD CELL COUNT (BEAKER) 4.58 M/ L 4.00-5.00 (test code = 761) HEMOGLOBIN (BEAKER) (test code = 12.0 GM/DL 12.0-15.5 410) HEMATOCRIT (BEAKER) (test code = 38.6 % 36.0-46.0 411) MEAN CORPUSCULAR VOLUME (BEAKER) 84.3 fL 82.0-99.0 (test code = 753) MEAN CORPUSCULAR HEMOGLOBIN 26.2 pg 27.0-33.0 L (BEAKER) (test code = 751) MEAN CORPUSCULAR HEMOGLOBIN CONC 31.1 GM/DL 32.0-36.0 L (BEAKER) (test code = 752) RED CELL DISTRIBUTION WIDTH 13.3 % 12.0-15.0 (BEAKER) (test code = 412) PLATELET COUNT (BEAKER) (test 319 K/CU MM 150-430 code = 756) MEAN PLATELET VOLUME (BEAKER) 9.2 fL 6.0-11.5 (test code = 754) NUCLEATED RED BLOOD CELLS 0 /100 WBC 0-0 (BEAKER) (test code = 413) (MANUAL DIFFERENTIAL)2019-05-09 17:13:00 Test Item Value Reference Range Interpretation Comments NEUTROPHILS - REL (DIFF) (BEAKER) 90 % (test code = 1359) LYMPHOCYTES - REL (DIFF) (BEAKER) 9 % (test code = 1360) MYELOCYTES-REL (DIFF) (BEAKER) 1 % 0-0 H (test code = 1594) NEUTROPHILS - ABS (DIFF) (BEAKER) 7.56 K/ L 1.80-8.00 (test code = 1365) LYMPHOCYTES - ABS (DIFF) (BEAKER) 0.76 K/ L 1.48-4.50 L (test code = 1366) MYELOCYTES-ABS (DIFF) (BEAKER) 0.08 K/ L 0.00-0.00 H (test code = 1593) TOTAL COUNTED (BEAKER) (test code = 100 1351) WBC MORPHOLOGY (BEAKER) (test code Normal = 487) PLT MORPHOLOGY (BEAKER) (test code Normal = 486) RBC MORPHOLOGY (BEAKER) (test code Normal = 762) TROPONIN [id number] 17:00:00 Test Item Value Reference Range Interpretation Comments TROPONIN I (BEAKER) (test code = 397) < ng/mL 0.00-0.15 Troponin I (TnI) levels must be interpreted in the context of the presenting symptoms and the clinical findings. Elevated TnI levels indicate myocardial damage, but are not specific for ischemic heart disease. Elevated TnI levels are seen in patients with other cardiac conditions (including myocarditis and congestive heart failure), and slight TnI elevations occur in patients with other conditions, including sepsis, renal failure, acidosis, acute neurological disease, and persistent tachyarrhythmia.CREATINE KINASE (CK)2019-05-09 16:51:00 Test Item Value Reference Range Interpretation Comments CREATINE KINASE TOTAL (BEAKER) (test 22 U/L 25-235 L code = 380) BASIC METABOLIC [id number] 16:50:00 Test Item Value Reference Range Interpretation Comments SODIUM (BEAKER) 140 meq/L 135-148 (test code = 381) POTASSIUM (BEAKER) 3.2 meq/L 3.6-5.5 L (test code = 379) CHLORIDE (BEAKER) 103 meq/L 98-106 (test code = 382) CO2 (BEAKER) (test 24 meq/L 20-29 code = 355) BLOOD UREA NITROGEN 13 mg/dL 10-26 (BEAKER) (test code = 354) CREATININE (BEAKER) 0.87 mg/dL 0.50-1.20 (test code = 358) GLUCOSE RANDOM 249 mg/dL 70-110 H (BEAKER) (test code = 652) CALCIUM (BEAKER) 9.4 mg/dL 8.5-10.5 (test code = 697) EGFR (BEAKER) (test 65 mL/min/1.73 ESTIMA FEDERICO GFR IS code = 1092) sq m NOT ACCURATE CREATININE CLEARANCE IN PREDICTING GLOMERULAR FILTRATION RATE . ESTIMATED GFR I S NOT APPLICABLE FOR DIALYSIS PATIEN TS. RAD, CHEST, 2 [id number] 16:48:00Reason for exam:->CHEST PAINReason for exam:->SHORTNESS OF BREATHFINAL REPORT EXAM: Frontal and lateral chest radiograph HISTORY PROVIDED: Chestpain, shortness of breath COMPARISON: None available IMPRESSION:Lung volumes are low. There are left greater than right bibasilar opacities which may represent pneumonia or atelectasis. No pneumothoraxor significant pleural fluid. Mild central pulmonary vascular congestion is suspected without overt pulmonary edema. The cardiac silhouette is at the upper limits of normal for size. There is atherosclerotic calcification of the aorta. No acute osseous abnormality. Signed: Janel Martins MDReport Verified Date/Time: 05/09/2019 16:48:33 [facility] -[id number] 16:44:00 Test Item Value Reference Range Interpretation Comments D-DIMER QUANTITATIVE (BEAKER) (test 0.35 mg/L <0.50 code = 671) REGARDING D-DIMER RESULTS: The 98% NPV (Negative Predictive Value) for DVT/PE exclusion is 0.50 mg/LFEU as suggested by the family preservation officer and as approved by the FDA.Final Information (Auto Output)
[2022-07-04] MEDS ORDERED: MORPHINE 4 MG/ML SYR ONE (04:03)
[2022-07-04] MEDS ORDERED: NA CHLORIDE 0.9% 500 ML ONE (04:04)
[2022-07-04] MEDS ORDERED: ONDANSETRON 4 MG/2 ML VIAL ONE (04:04)
[2022-07-04 04:34] LABS: Absolute Lymphocytes (CBC) 1.1 K/uL (0.7-4.9); Hematocrit 38.3 % (36.0-45.0); Lymphocytes % 6.8 % (15.3-44.8); MCV 80.5 fL (80-100); MPV 7.4 fL (7.6-11.3); RBC Red Blood Cell Count 4.76 M/uL (3.86-4.86)
[2022-07-04 04:50] LABS: Albumin 3.7 g/dL (3.4-5.0); Bilirubin Total 0.3 mg/dL (0.2-1.0); Potassium 3.3 mmol/L (3.5-5.1); Protein, Total 8.3 g/dL (6.4-8.2); Troponin High Sensitivity 29.6 pg/mL (<58.9)
--- NOTE | 2022-07-04 05:32 | EDPHYS ---
Physician Documentation [facility] Name: Radha Quiroz Age: 72 yrs Sex: Female : 1950 Arrival Date: 07/04/2022 Time: 03:57 Bed 4 Private MD: ED Physician Della Whittaker HPI: 07/04 04:21 This 72 yrs old Female presents to ER via EMS with complaints of sp3 Nausea/Vomiting. 04:21 72-year-old female with history of hypertension presents with chief complaint nausea sp3 and vomiting and abdominal pain for approximately 4 to 5 hours just prior to arrival. Patient states that after dinner her pain started and she activated EMS which brought her to the ED. She denies any fever, chest pain, shortness of breath, back pain, rash, focal neurodeficit, known sick contacts, travel history, known bad food, or any other symptoms on ROS at this time.. Historical: - Allergies: 03:59 NKA; tw5 - PMHx: 03:59 Hypertension; tw5 - Immunization history:: Flu vaccine is not up to date. - Social history:: Smoking status: Patient denies any tobacco usage or history of. ROS: 04:21 Constitutional: Negative for fever, chills, and weight loss, Eyes: Negative for injury, sp3 pain, redness, and discharge, ENT: Negative for injury, pain, and discharge, Neck: Negative for injury, pain, and swelling, Cardiovascular: Negative for chest pain, palpitations, and edema, Respiratory: Negative for shortness of breath, cough, wheezing, and pleuritic chest pain, Back: Negative for injury and pain, MS/Extremity: Negative for injury and deformity, Skin: Negative for injury, rash, and discoloration, Neuro: Negative for headache, weakness, numbness, tingling, and seizure, Psych: Negative for depression, anxiety, suicide ideation, homicidal ideation, and hallucinations, Allergy/Immunology: Negative for hives, rash, and allergies, Endocrine: Negative for neck swelling, polydipsia, polyuria, polyphagia, and marked weight changes, Hematologic/Lymphatic: Negative for swollen nodes, abnormal bleeding, and unusual bruising. 04:21 All other systems are negative. Exam: 04:22 Constitutional: This is a well developed, well nourished patient who is awake, alert, sp3 and in no acute distress. Head/Face: Normocephalic, atraumatic. Eyes: Pupils equal round and reactive to light, extra-ocular motions intact. Lids and lashes normal. Conjunctiva and sclera are non-icteric and not injected. Cornea within normal limits. Periorbital areas with no swelling, redness, or edema. ENT: Nares patent. No nasal discharge, no septal abnormalities noted. External auditory canals are clear. Oropharynx with no redness, swelling, or masses, exudates, or evidence of obstruction, uvula midline. Mucous membranes moist. Neck: Trachea midline, no thyromegaly or masses palpated, and no cervical lymphadenopathy. Supple, full range of motion without nuchal rigidity, or vertebral point tenderness. No Meningismus. Chest/axilla: Normal chest wall appearance and motion. Nontender with no deformity. No lesions are appreciated. Cardiovascular: Regular rate and rhythm with a normal S1 and S2. No gallops, murmurs, or rubs. Normal PMI, no JVD. No pulse deficits. Respiratory: Lungs have equal breath sounds bilaterally, clear to auscultation and percussion. No rales, rhonchi or wheezes noted. No increased work of breathing, no retractions or nasal flaring. Back: No spinal tenderness. No costovertebral tenderness. Full range of motion. Skin: Warm, dry with normal turgor. Normal color with no rashes, no lesions, and no evidence of cellulitis. MS/ Extremity: Pulses equal, no cyanosis. Neurovascular intact. Full, normal range of motion. Neuro: Awake and alert, GCS 15, oriented to person, place, time, and situation. Cranial nerves II-XII grossly intact. Motor strength 5/5 in all extremities. Sensory grossly intact. Cerebellar exam normal. Normal gait. Psych: Awake, alert, with orientation to person, place and time. Behavior, mood, and affect are within normal limits. 04:22 ECG was reviewed by the Attending Physician. Trace normal sinus rhythm at 60 bpm with normal axis, normal QRS, normal intervals, nonspecific diffuse ST/T changes without evidence of acute ischemia. Vital Signs: 04:13 BP 104 / 88; Pulse 100; Resp 18; Temp 98.2; Pulse Ox 97% ; Weight 81.65 kg; Height 5 as6 ft. 2 in. (157.48 cm); Pain 7/10; 05:10 BP 107 / 67; Pulse 92; Resp 18 S; Pulse Ox 94% on R/A; ha1 06:08 BP 99 / 56; Pulse 93; Resp 18 S; Pulse Ox 95% on R/A; ha1 04:13 Body Mass Index 32.92 (81.65 kg, 157.48 cm) as6 MDM: 03:58 Patient medically screened. sp3 04:23 Data reviewed: vital signs, nurses notes. ED course: 72-year-old female with abdominal sp3 pain and nausea/vomiting. Differential diagnosis is broad and includes pancreatitis, gastritis, complications from prior cholecystitis, aortic pathology, general abdominal pain, ACS, among others. Clinically ruled out pulmonary etiology, UTI, pyelonephritis, sepsis, shock, any other critical findings. Work-up will include laboratory values, urinalysis, CT scan of the abdomen and pelvis, pain and nausea control, IV fluids, and general observation and supportive care. Disposition pending and will be based on work-up and patient course.. 05:30 ED course: CT scan demonstrates no acute abnormality. WBC count of 16,000 noted. sp3 Patient does feel better with medications. Will discharge patient home on prophylactic antibiotics of Cipro and Flagyl given her age and risk factors and initial presentation. Patient is not septic shock, or in any distress. Patient follow-up with PCP as needed.. 07/04 03:58 Order name: CBC with Diff; Complete Time: 04:58 sp3 07/04 03:58 Order name: CMP; Complete Time: 04:58 sp3 07/04 03:58 Order name: Lipase; Complete Time: 04:58 sp3 07/04 03:58 Order name: Urine Microscopic Only sp3 07/04 03:58 Order name: Troponin High Sensitivity; Complete Time: 04:58 sp3 07/04 05:09 Order name: CREATININE WHOLE BLOOD; Complete Time: 05:29 EDMS 07/04 03:58 Order name: CT Abd/Pelvis - IV Contrast Only sp3 07/04 03:58 Order name: IV Saline Lock; Complete Time: 03:58 sp3 07/04 03:58 Order name: Labs collected and sent; Complete Time: 04:09 sp3 07/04 04:02 Order name: Abdomen EDMS 07/04 03:58 Order name: EKG - Nurse/Tech; Complete Time: 04:09 sp3 07/04 03:58 Order name: NPO; Complete Time: 03:59 sp3 Administered Medications: 04:00 Drug: NS 0.9% 500 ml Route: IV; Rate: bolus; Site: right antecubital; ha1 06:20 Follow up: Response: No adverse reaction; IV Status: Completed infusion; IV Intake: ha1 500ml 04:01 Drug: Zofran (Ondansetron) 4 mg Route: IVP; Site: right antecubital; ha1 04:30 Follow up: Response: No adverse reaction ha1 04:03 Drug: morphine 4 mg Route: IVP; Infused Over: 4 mins; Site: right antecubital; ha1 04:30 Follow up: Response: No adverse reaction; Pain is decreased; RASS: Alert and Calm (0) ha1 Disposition Summary: 07/04/22 05:31 Discharge Ordered Location: Home sp3 Condition: Stable sp3 Diagnosis - Infectious gastroenteritis and colitis, unspecified sp3 Followup: sp3 - With: Private Physician - When: Upon discharge from the Emergency Department - Reason: Recheck today's complaints Discharge Instructions: - Discharge Summary Sheet sp3 - Gastritis, Adult sp3 Forms: - Medication Reconciliation Form sp3 - Thank You Letter sp3 - Antibiotic Education sp3 - Prescription Opioid Use sp3 Prescriptions: - Cipro 250 mg Oral Tablet - take 2 tablets by ORAL route every 12 hours; 20 tablet; Refills: 0, Product sp3 Selection Permitted - Flagyl 500 mg Oral Tablet - take 1 tablet by ORAL route every 12 hours for 7 days; 14 tablet; Refills: 0, sp3 Product Selection Permitted Signatures: Dispatcher [employer] Della Tse MD MD sp3 Gina Claudio 5 Tiffanie Felipe RN RN ha1
--- NOTE | 2022-07-04 05:32 | ER ---
Nurse's Notes [facility] Name: Radha Quiroz Age: 72 yrs Sex: Female : 1950 Arrival Date: 07/04/2022 Time: 03:57 Bed 4 Private MD: Diagnosis: Infectious gastroenteritis and colitis, unspecified Presentation: 07/04 03:57 Chief complaint: EMS states: "She has been having nausea and vomiting since 6:30 PM tw5 last night. She last threw up an hour ago right before we picked her up. She was also complaining of abdominal pain.". Coronavirus screen: Vaccine status: Patient reports receiving the 2nd dose of the covid vaccine. Moderna. Ebola Screen: Patient negative for fever greater than or equal to 101.5 degrees Fahrenheit, and additional compatible Ebola Virus Disease symptoms Patient denies exposure to infectious person. Patient denies travel to an Ebola-affected area in the 21 days before illness onset. Risk Assessment: Do you want to hurt yourself or someone else? Patient reports no desire to harm self or others. Onset of symptoms was July 03, 2022 at 06:30. 03:57 Method Of Arrival: EMS: [facility] tw5 03:57 Acuity: FABIOLA 3 tw5 04:13 Initial Sepsis Screen: Does the patient meet any 2 criteria? No. Patient's initial as6 sepsis screen is negative. Does the patient have a suspected source of infection? No. Patient's initial sepsis screen is negative. Triage Assessment: 03:59 General: Appears uncomfortable, obese, Behavior is calm, cooperative, appropriate for tw5 age. GI: Reports lower abdominal pain, nausea, vomiting. Historical: - Allergies: 03:59 NKA; tw5 - PMHx: 03:59 Hypertension; tw5 - Immunization history:: Flu vaccine is not up to date. - Social history:: Smoking status: Patient denies any tobacco usage or history of. Screenin:13 [facility] ED Fall Risk Assessment (Adult) Score/Fall Risk Level 0 - 2 = Low Risk. Abuse as6 screen: Denies threats or abuse. Denies injuries from another. Nutritional screening: No deficits noted. Tuberculosis screening: No symptoms or risk factors identified. Assessment: 03:57 General: Appears uncomfortable, Behavior is calm, cooperative. Pain: Complains of pain ha1 in abdomen. Neuro: Level of Consciousness is awake, alert, obeys commands, Oriented to person, place, time, situation. Cardiovascular: Capillary refill < 3 seconds Patient's skin is warm and dry. Respiratory: Airway is patent Respiratory effort is even, unlabored, Respiratory pattern is regular, symmetrical. GI: Abdomen is round non-distended, Reports nausea, vomiting, abdominal pain. : No signs and/or symptoms were reported regarding the genitourinary system. EENT: No deficits noted. No signs and/or symptoms were reported regarding the EENT system. Derm: Skin is pink, warm \\T\\ dry. Musculoskeletal: Circulation, motion, and sensation intact. 04:53 Reassessment: Patient and/or family updated on plan of care and expected duration. Pain ha1 level reassessed. Patient is alert, oriented x 3, equal unlabored respirations, skin warm/dry/pink. Patient states feeling better. Patient states symptoms have improved. Vital Signs: 04:13 BP 104 / 88; Pulse 100; Resp 18; Temp 98.2; Pulse Ox 97% ; Weight 81.65 kg; Height 5 as6 ft. 2 in. (157.48 cm); Pain 7/10; 05:10 BP 107 / 67; Pulse 92; Resp 18 S; Pulse Ox 94% on R/A; ha1 06:08 BP 99 / 56; Pulse 93; Resp 18 S; Pulse Ox 95% on R/A; ha1 04:13 Body Mass Index 32.92 (81.65 kg, 157.48 cm) as6 ED Course: 03:57 Patient arrived in ED. tw5 03:57 Della Whittaker MD is Attending Physician. sp3 03:58 Dino De Los Santos, CARLOS A is Primary Nurse. as6 03:58 Inserted saline lock: 18 gauge in right antecubital area, using aseptic technique. as6 Blood collected. 03:59 Triage completed. tw5 03:59 Patient has correct armband on for positive identification. Placed in gown. Bed in low tw5 position. Call light in reach. Side rails up X 1. Pulse ox on. NIBP on. Door closed. Noise minimized. Moved to private room. Warm blanket given. Verbal reassurance given. 04:09 Lipase Sent. as6 04:09 CMP Sent. as6 04:09 CBC with Diff Sent. as6 04:13 Arm band placed on. as6 04:14 Troponin High Sensitivity Sent. as6 04:49 Abdomen In Process Unspecified. EDMS 06:21 No provider procedures requiring assistance completed. IV discontinued, intact, ha1 bleeding controlled, No redness/swelling at site. Pressure dressing applied. Administered Medications: 04:00 Drug: NS 0.9% 500 ml Route: IV; Rate: bolus; Site: right antecubital; ha1 06:20 Follow up: Response: No adverse reaction; IV Status: Completed infusion; IV Intake: ha1 500ml 04:01 Drug: Zofran (Ondansetron) 4 mg Route: IVP; Site: right antecubital; ha1 04:30 Follow up: Response: No adverse reaction ha1 04:03 Drug: morphine 4 mg Route: IVP; Infused Over: 4 mins; Site: right antecubital; ha1 04:30 Follow up: Response: No adverse reaction; Pain is decreased; RASS: Alert and Calm (0) ha1 Medication: 05:10 VIS not applicable for this client. as6 Intake: 06:20 IV: 500ml; Total: 500ml. ha1 Outcome: 05:31 Discharge ordered by . sp3 06:21 Discharged to home ambulatory. ha1 06:21 Condition: stable 06:21 Discharge instructions given to patient, Instructed on discharge instructions, follow up and referral plans. medication usage, Demonstrated understanding of instructions, follow-up care, medications, Prescriptions given X 2. 06:22 Patient left the ED. ha1 Signatures: Dispatcher [employer] EDNH Della Whittaker MD MD sp3 Gina Claudio tw5 Dino De Los Santos RN RN as6 Tiffanie Felipe, CARLOS A RN ha1 Corrections: (The following items were deleted from the chart) 06:10 05:10 BP 107 / 67; Pulse 18bpm; Resp 92bpm; Spontaneous; Pulse Ox 94% RA; as6 ha1
[2022-07-04 06:29] LABS: Urine Bacteria None Seen /HPF (<20); Urine Mucus Slight /HPF (None Seen); Urine RBC <5 /HPF (None Seen)
[2022-07-04 06:35] VITALS: TEMP 98.2
[2022-07-04 06:44] VITALS: BP 99/56; O2SAT 95
--- NOTE | 2022-07-04 17:53 | RAD REPORT ---
EXAM DESCRIPTION: CT - Abdomen Pelvis W Contrast - 07/04/2022 6:14 am CLINICAL HISTORY: The patient is 72 years old and is Female; abd pain TECHNIQUE: Axial computed tomography images of the abdomen and pelvis with intravenous contrast. S agittal and coronal reformatted images were created and reviewed. This CT exam was performed using one or more of the following dose reduction techniques: automated exposure control, adjustment of t he mA and/or kV according to patient size, and/or use of iterative reconstruction technique. COMPARISON: CT abdomen pelvis April 27, 2017. FINDINGS: Lung bases: 8mm nodule in the lingula. Bibasilar linear atelectasis. ABDOMEN: Liver: Enlarged fatty liver. Gallbladder and bile ducts: Cholecystectomy with dilated common bile duct, possibly reservoir ef fect. No choledocholithiasis. Pancreas: No findings to suggest acute pancreatitis. No mass visualized. No ductal dilation. Spleen: Unremarkable. No splenomegaly. Adrenals: Unremarkable. No mass. Kidneys and ureters: Heterogeneous low density area in the lower pole of the right kidney, 2.9 c m. This is favored to be scarring/sequela of renal resection. Left kidney is unremarkable. 3.5 cm cyst in the upper pole the right kidney with inferior wall calcification. No follow-u p imaging recommended. No hydronephrosis. Stomach and bowel: Colonic diverticulosis. No findings to suggest colitis or diverticulitis. Fluid-filled small bowel loops, nondilated . No bowel wall thickening or obstruction. PELVIS: Appendix: The visualized appendix is normal. No pericecal inflammation to suggest acute appendic itis. Bladder: Unremarkable. No mass. Reproductive: Hysterectomy. No adnexal mass. ABDOMEN and PELVIS: Intraperitoneal space: Unremarkable. No free air. No significant fluid collection. Bones/joints: No acute fracture. No dislocation. Soft tissues: Previous ventral abdominal wall hernia repair. Vasculature: Unremarkable. No abdominal aortic aneurysm. Lymph nodes: No pathologically enlarged lymph nodes. IMPRESSION: 1. No acute obstructive or inflammatory process identified. Normal appendix. 2. Colonic diverticulosis. 3. Enlarged fatty liver. 4. Cholecystectomy with dilated common bile duct, possibly reservoir effect. No choledocholithiasis . 5. 2.9 cm heterogeneous low-density area in the lower pole the right kidney, predominantly fat and scarring. This is favored to be scarring/sequela of renal resection. 6. 8 mm lingula solid pulmonary nodule. Recommend a non-contrast Chest CT at 6-12 months. If patien t is high risk for malignancy, recommend an additional non-contrast Chest CT at 18-24 months; if angel ent is low risk for malignancy a non-contrast Chest CT at 18-24 months is optional. These guidelines do not apply to immunocompromised patients and patients with cancer. Follow up in pa tients with significant comorbidities as clinically warranted. For lung cancer screening, adhere to [facility]-RADS guidelines. Reference: Radiology. 2017; 284(1):228-43. Electronically signed by: Randi Murphy MD 07/04/2022 5:17 AM [employer]GER [employer] Due to temporary technical issues with the PACS/Fluency reporting system, reports are being signed by the in house radiologists without review as a courtesy to insure prompt reporting. The interpreting radiologist is fully responsible for the content of the report.
== END 2022-07-04 06:22 | disposition home or self-care (01) ==
LOC: ER 03:56
DX: A09 Infectious gastroenteritis and colitis, unspecified (principal); I10 Essential (primary) hypertension
CPT/HCPCS: 96361; 85025; 36415; 82565; 81015; 84484; 83690; 80053; 74177; 96375; 96374; 99284; Q9967; J7040; J2405

== ENCOUNTER 2023-11-11 19:55 | Emergency (ER) | payer OTHER ==
--- OUTSIDE RECORDS SUMMARY | 2023-11-11 19:59 | XMS REPORT | Clinical Summary ---
Author Name Unknown Organization [facility] [place] Address [address] [place] [address] Care Team Providers Care Senior Manufacturing Test Engineer Name Role Phone Laron Lambert MD Unavailable [phone] Raj Mansfield MD Primary Care Provider Unavailab Venkatesh Eisenberg MD Unavailable [phone] Lenka Ortiz MD Unavailable Dioni Mack MD Unavailable Allergies No known active allergies Medications Medication Sig Dispensed Refills Start Date End Date Status atorvastatin (LIPITOR) 20 mg tablet Take 1 tablet (20 mg) by mouth daily. 5 12/07/2018 Active losartan-hydrochlor othiazide (HYZAAR) 100-25 mg per tablet Take 1 tablet by mouth daily. 0 Active gabapentin (NEURONTIN) 300 mg capsuleIndications: Malignant neoplasm of endometrium,Encount er for examination prior to antineoplastic chemotherapy,Hypoka lemia,Hypomagnesemi a,Generalized anxiety disorder,Pain,Nause a with vomiting,Malignant neoplasm of right kidney, except renal pelvis,Encounter for antineoplastic chemotherapy,Bilate ral hearing loss, not otherwise specified Take 3 capsules (900 mg) by mouth 3 (three) times a day. 270 capsule 2 02/16/2020 Active Additional Information Patient taking differently: 600 mgoral2 times daily, Reason: Not effective, Informant: Self, Reported on 10/30/2023 metFORMIN (GLUCOPHAGE) 1000 mg tablet Take 0.5 tablets (500 mg) by mouth twice daily. 0 10/11/2020 Active ferrous sulfate 324 mg (65 mg iron) TbEC Take 65 mg by mouth daily with breakfast. 0 06/06/2021 Active citalopram (CeleXA) 10 mg tablet TAKE 1 TABLET BY MOUTH EVERY DAY FOR 90 DAYS 0 01/07/2022 10/30/19 24 Discontinu ed(Therapy completed) vitamin B complex capsule Take by mouth. 0 10/30/19 24 Discontinu ed(Therapy completed) Active Problems Problem Noted Date Diagnosed Date Screening for malignant neoplasms of colon 04/09 Overview: Added automatically from request for surgery [id number] Renal mass 12/31/2020 Anemia 12/31/2020 Clear cell carcinoma of kidney 12/31/2020 Chronic diarrhea 08/13/2020 History of malignant neoplasm of endometrium Pain in left ankle 08/29/2019 Generalized muscle weakness 07/22/2019 Cancer-related fatigue 07/22/2019 Drug-induced polyneuropathy 07/18/2019 Hypomagnesemia 05/16/2019 Generalized anxiety disorder 05/16/2019 Paraparesis 05/02/2019 Hypokalemia 03/15/2019 Malignant neoplasm of right kidney, except renal pelvis 03/15/2019 Hypertension 02/11/2019 Hyperlipidemia 02/11/2019 Type 2 diabetes mellitus 02/11/2019 Gallstone 02/11/2019 H/O: section 02/11/2019 Overview: x4 Postmenopausal atrophic vaginitis 02/11/2019 Hearing loss 02/11/2019 Malignant neoplasm of endometrium 02/11/2019 Cancer Staging:Clinical stage from 03/01/2019:Stage IIIC1(Primary) - Signed by Raj Mansfield MD on 04/11/2019 Encounters Date Type Department Care Team Description 10/30/2023 8:30 AM CDT Consult [facility] - Oncology [address] [facility], 7th [place] [address] Dioni Mack MD Malignant neoplasm of right kidney, except renal pelvis (Primary Dx); Pulmonary nodules 10/30/2023 Orders Only Neuroradiology [address] [place], [place] [id number] Sathya Zabala MD 10/30/2023 Travel 10/23/2023 Documentation MD [facility] [place] [facility] Urology [address] [place] [address] Aleksandra Olvera PA 10/23/2023 Orders Only MD [facility] [place] [facility] U[facility] [address] [place] [phone] Aleksandra Olvera PA Pulmonary nodules (Primary Dx) 10/23/2023 Documentation MD [facility] [place] [facility] [address] [place] [phone] Aleksandra Olvera PA 10/23/2023 Orders Only [facility] [place] [facility] U[facility] [address] [place] [phone] Aleksandra Olvera PA Pulmonary nodules (Primary Dx); Abnormal findings on diagnostic imaging of lung; Malignant neoplasm of unspecified kidney, except renal pelvis 10/21/2023 4:22 PM CDT - 10/21/2023 11:59 PM CDT Hospital Encounter Interventional Radiology [address] [place] [address], [facility] [place] [address] Discharge Disposition: Home 10/21/2023 1:29 PM CDT - 10/21/2023 4:21 PM CDT Hospital Encounter Interventional Radiology [address] [place] [address], [facility] [place] [address] Discharge Disposition: Home 10/21/2023 11:28 AM CDT - 10/21/2023 1:28 PM CDT Hospital Encounter Interventional Radiology [address] [place] [address], [facility] [place] [address] Aleksandra Olvera PA Huang, Steven Y., MD Pulmonary nodules Discharge Disposition: Home 10/21/2023 Travel 10/20/2023 2:00 PM CDT - 10/20/2023 11:59 PM CDT Hospital Encounter [facility] [address] [place] [phone] Antonia Harvey PA Encounter for preprocedural laboratory examination Discharge Disposition: Home 10/20/2023 1:15 PM CDT - 10/20/2023 1:59 PM CDT Hospital Encounter Interventional Radiology [address] [facility], 4th [place] [address] Carolyne Whittaker PA Multiple nodules of lung (Primary Dx) Discharge Disposition: Home 10/20/2023 Travel 10/19/2023 Orders Only Interventional Radiology [address] [facility], 4th [place] [address] Chepe Schmid PA-C Encounter for preprocedural laboratory examination (Primary Dx) 10/15/2023 Orders Only Main Interventional Radiology [address] [facility], 3rd [place] [address] Carolyne Whittaker PA Encounter for preprocedural laboratory examination (Primary Dx) 10/08/2023 Orders Only Interventional Radiology [address] [facility], 4th [place] [address] Antonia Harvey PA Encounter for preprocedural laboratory examination (Primary Dx) 10/08/2023 Telephone MD [facility] [address] [place] [address] Nidhi Loo MA 10/07/2023 Documentation MD [facility] [place] [facility] U[facility] [address] [place] [address] Aleksandra Olvera PA 10/07/2023 Orders Only MD [facility] [place] [facility] [address] [place] [phone] Aleksandra Olvera PA Pulmonary nodules (Primary Dx) 10/06/2023 3:15 PM CDT Telemedicine MD [facility] [place] [facility] [address] [place] [phone] Lenka Ortiz MD Abnormal findings on diagnostic imaging of lung (Primary Dx) 10/06/2023 Orders Only MD [facility] [place] [facility] [address] [place] [address] Aleksandra Olvera PA 09/29/2023 2:15 PM CDT Telemedicine MD [facility] [place] [facility] [address] [place] [address] Lenka Ortiz MD Malignant neoplasm of unspecified kidney, except renal pelvis 09/29/2023 8:05 AM CDT Ancillary Procedure CT Imaging [address] [facility], 7th [place] [address] Aleksandra Olvera PA Malignant neoplasm of unspecified kidney, except renal pelvis; Solitary pulmonary nodule 09/29/2023 7:30 AM CDT Ancillary Procedure [facility] Outpatient [facility] [address] [facility], 7th [place] [address] Aleksandra Olvera PA Malignant neoplasm of unspecified kidney, except renal pelvis 09/29/2023 7:00 AM CDT - 09/29/2023 11:59 PM CDT Hospital Encounter Diagnostic [facility] [place] [address] Aleksandra Olvera PA Malignant neoplasm of unspecified kidney, except renal pelvis Discharge Disposition: Home 09/23/2023 Orders Only MD [facility] [place] [facility] U[facility] [address] [place] [phone] Aleksandra Olvera PA Solitary pulmonary nodule (Primary Dx) 05/25/2023 Telephone MD [facility] [place] - Gynecology [address] [place] [address] Lenora Alvarado, RN Appointment 04/08/2023 Orders Only MD [facility] [place] [facility] [address] [place] [address] Aleksandra Olvera PA Thyroid nodule (Primary Dx) 04/08/2023 Documentation MD [facility] [place] [facility] [address] [place] [address] Aleksandra Olvera PA 04/04/2023 1:30 PM CDT - 04/04/2023 11:59 PM CDT Hospital Encounter Main CT IMAGING [address], 3rd [place] [address] Aleksandra Olvera PA Solitary pulmonary nodule Discharge Disposition: Home 03/25/2023 Orders Only MD [facility] [place] [facility] Urology [address] [place] [phone] Aleksandra Olvera PA Solitary pulmonary nodule (Primary Dx) 03/23/2023 2:00 PM CDT Telemedicine MD [facility] [place] [facility] Urology [address] [place] [address] Aleksandra Olvera PA Malignant neoplasm of unspecified kidney, except renal pelvis 03/23/2023 Orders Only MD [facility] [place] [facility] U[facility] [address] [place] [address] Aleksandra Olvera PA Malignant neoplasm of unspecified kidney, except renal pelvis (Primary Dx) 03/22/2023 8:24 AM CDT - 03/22/2023 11:59 PM CDT Hospital Encounter Main CT IMAGING [address], 3rd [place] [address] Aleksandra Olvera PA Malignant neoplasm of unspecified kidney, except renal pelvis Discharge Disposition: Home 11/24/2022 2:00 PM CDT Follow-Up MD [facility] [place] - Gynecology [address] [place] [address] Raj Mansfield MD Malignant neoplasm of endometrium (Primary Dx); Abdominal pain, not otherwise specified; Screening colonoscopy 11/24/2022 Travel after 11/11/2022 Immunizations Name Administration Dates Next Due Pfizer SARS-CoV-2 Vaccination (Purple Cap) 09/01,08/11/2020 Surgical History Surgery Date Site/Laterality Comments HERNIA REPAIR 07/06/2017 - 07/05/2018 umbilical hernia repair CHOLECYSTECTOMY 07/06/2014 - 07/05/2015 lap SECTION, CLASSIC X4 ROBOTIC LAPAROSCOPIC HYSTERECTOMY 03/01/2019 STAGE IIIC serous carcinoma ABDOMINAL ADHESION SURGERY 03/01/2019 BILATERAL SALPINGOOPHORECTOMY 03/01/2019 MAMMOGRAM HISTORICAL 12/04/2018 - 01/02/2019 RADIOFREQUENCY ABLATION KIDNEY 07/06/2020 - 07/05/2021 Right Medical History Medical History Date Comments Hypertension Hearing loss Menopause late 40s Uterine leiomyoma Diabetes mellitus Chronic obstructive pulmonary disease Kidney cancer 2020 Family History Medical History Relation Name Comments Stomach cancer Brother Relation Name Status Comments Brother Social History Tobacco Use Types Packs/Day Years Used Date Smoking Tobacco: Former Cigarettes 1.5 0 1 965 - 2016 Smokeless Tobacco: Never Alcohol Use Standard Drinks/Week Comments Not Currently 0 (1 standard drink = 0.6 oz pur e alcohol) Sex and Gender Information Value Date Recorded Sex Assigned at Female 02/13/2019 7:44 AM CDT Gender Identity Female 02/13/2019 7:44 AM CDT Sexual Orientation Straight 02/13/2019 7: 44 AM CDT Job Start Date Occupation Industry Not on file Not on file Not on file Obstetrics History Para Term AB IAB SAB Ectopic Multiple Livin g Live Births 4 4 Date Outcome GA Total Labor Labor/2nd/3rd Weight Sex Delivery Anes PTL Marge A1 A5 Name Cl in Para Para Para Para Comments All C/S deliveries Last Filed Vital Signs Vital Sign Reading Time Taken Comments Blood Pressure 147/86 10/30/2023 8:40 AM CDT Pulse 98 10/30/2023 8:40 AM CDT Temperature 36 C (96.8 F) 10/30/2023 8:40 AM CDT Respiratory Rate 16 10/30/2023 8:40 AM CDT Oxygen Saturation 96% 10/30/2023 8:40 AM CDT Inhaled Oxygen Concentration - - Weight 87.1 kg (192 lb 0.3 oz) 10/30/2023 8:37 A M CDT Height 149.5 cm (4' 10.86") 10/30/2023 8:37 AM C DT Body Mass Index 38.97 10/30/2023 8:37 AM CDT Plan of Treatment Health Maintenance Due Date Last Done Comments COVID-19 Vaccine ( season) 2023, 08/11/2020 Influenza Vaccine 03/06/2024 Procedures Procedure Name Priority Date/Time Associated Diagnosis Comments IR CHEST XRAY 1 VIEW 30 Routine 10/21/2023 4:43 PM CDT IR CHEST XRAY 1 VIEW 30 STAT 10/21/2023 1:[address] GUIDED BIOPSY LUNG/MEDIASTINAL 60 Routine 10/21/2023 1:32 PM CDT Pulmonary nodules PATHOLOGY BIOPSY INTERPRETATION Routine 10/21/2023 12:57 PM CDT Pulmonary nodules POC GLUCOSE SCREEN Routine 10/21/2023 12 :00 PM CDT EKG, 12-LEAD (SCHEDULED) Routine 10/21/2023 Encounter for preprocedural laboratory examination HISTORICAL ABORH Routine 10/20/2023 2:59 PM CDT Encounter for preprocedural laboratory examination .CBC Routine 10/20/2023 2:25 PM CDT Encounter for preprocedural laboratory examination BASIC METABOLIC PANEL, CALCIUM TOTAL Routine 10/20/2023 2:25 PM CDT Encounter for preprocedural laboratory examination TYPE AND SCREEN Routine 10/20/2023 2:25 PM CDT Encounter for preprocedural laboratory examination PROTHROMBIN TIME Routine 10/20/2023 2:25 PM CDT Encounter for preprocedural laboratory examination COMPLETE BLOOD COUNT W/ DIFFERENTIAL Routine 10/20/2023 2:25 PM CDT Encounter for preprocedural laboratory examination CT CHEST WO CONTRAST Routine 09/29/2023 11:53 AM CDT Solitary pulmonary nodule CT ABDOMEN PELVIS W WO CONTRAST KIDNEY Routine 09/29/2023 11:53 AM CDT Malignant neoplasm of unspecified kidney, except renal pelvis XR CHEST 2 VW Routine 09/29/2023 9:32 AM CDT Malignant neoplasm of unspecified kidney, except renal pelvis MDA CP HEMOGRAM Routine 09/29/2023 8:03 AM CDT Malignant neoplasm of unspecified kidney, except renal pelvis COMPLETE BLOOD COUNT W/ INDICES Routine 09/29/2023 8:03 AM CDT Malignant neoplasm of unspecified kidney, except renal pelvis COMPREHENSIVE METABOLIC PANEL Routine 09/29/2023 8:03 AM CDT Malignant neoplasm of unspecified kidney, except renal pelvis CT CHEST W CONTRAST Routine 04/04/2023 2 :22 PM CDT Solitary pulmonary nodule CT ABDOMEN PELVIS W WO CONTRAST Routine 03/22/2023 10:56 AM CDT Malignant neoplasm of unspecified kidney, except renal pelvis POC CREATININE Routine 03/22/2023 9:16 AM CDT CANCER ANTIGEN 125 Routine 11/24/2022 1: 14 PM CDT Malignant neoplasm of endometrium after 11/11/2022 Results * IR CHEST XRAY 1 VIEW (10/21/2023 4:43 PM CDT) Only the most recent of2 resultswithin the time period is included. Anatomical Region Laterality Modality Chest Digital Radiogra phy Narrative 10/21/2023 5:08 PM CDT Table formatting from the original result was not included. Date of Procedure: 10/21/23 Attending Physician: Vlad Hernandez MD Mixer Blender: None Pre Procedure Diagnosis: Pulmonary nodules Post Procedure Diagnosis: Unchanged Indication: New mass / nodule for tissue diagnosis Protocol Number: N/A Title of Procedure: Percutaneous CT-Guided Biopsy Operative Findings: 1. Percutaneous image-guided biopsy of 1 cm right lower lobe lung lesion. 2. The follow-up chest x-rays show no evidence of pneumothorax Consent: The procedure, risks, indications and alternatives were explained. All questions were answered and informed consent was obtained. I have reviewed the history and physical dictated by the mid-level practitioner/fellow. Sedation/Anesthesia: Moderate sedation for pain control and anxiety was administered by a dedicated nurse under my supervision. There was continuous monitoring of oxygen saturation, heart rate and intermittent monitoring of blood pressure during the procedure. Medication given was midazolam and fentanyl. I was present for the administration of the medications indicated above. Procedure Events Event Event Time Sedation Start 10/21/2023 12:45 PM Sedation End 10/21/2023 1:18 PM Procedure in Detail: A time out was performed prior to the start of the procedure and the correct patient, procedure, presence of consent, site, and side were confirmed with all members of the team. With the patient in the prone position, the skin overlying the area of interest was prepped and draped in the usual sterile fashion. Lidocaine 1% was used for local anesthesia. Using a posterior approach under CT image-guidance, a 19 gauge needle was advanced down to the lesion in the right lung. An image was obtained and placed into the medical record. Samples were obtained for evaluation. Sampling: Core Biopsy: A 20 gauge needle used to obtain samples for surgical pathology evaluation. Total number of samples: 2 Biosentry: A Biosentry device was deployed at the conclusion of the procedure. Post-biopsy radiographs: The initial follow-up chest radiograph demonstrates: No pneumothorax. A subsequent follow-up chest radiograph was obtained 3 hours after the initial and demonstrates: No pneumothorax. Specimens Disposition: Diagnostic Biopsy: The biopsy samples were submitted to pathology. Additional Comments: None Estimated Blood Loss: Minimal Immediate Complications: None Disposition: PACU Plan: No follow-up with Interventional Radiology required. Vlad Hernandez MD [facility] IR ORDERABLES * IR CT GUIDED BIOPSY LUNG/MEDIASTINAL (10/21/2023 1:32 PM CDT) Anatomical Region Laterality Modality Chest Computed Tomogra phy Narrative 10/21/2023 5:08 PM CDT Table formatting from the original result was not included. Date of Procedure: 10/21/23 Attending Physician: Vlad Hernandez MD Mixer Blender: None Pre Procedure Diagnosis: Pulmonary nodules Post Procedure Diagnosis: Unchanged Indication: New mass / nodule for tissue diagnosis Protocol Number: N/A Title of Procedure: Percutaneous CT-Guided Biopsy Operative Findings: 1. Percutaneous image-guided biopsy of 1 cm right lower lobe lung lesion. 2. The follow-up chest x-rays show no evidence of pneumothorax Consent: The procedure, risks, indications and alternatives were explained. All questions were answered and informed consent was obtained. I have reviewed the history and physical dictated by the mid-level practitioner/fellow. Sedation/Anesthesia: Moderate sedation for pain control and anxiety was administered by a dedicated nurse under my supervision. There was continuous monitoring of oxygen saturation, heart rate and intermittent monitoring of blood pressure during the procedure. Medication given was midazolam and fentanyl. I was present for the administration of the medications indicated above. Procedure Events Event Event Time Sedation Start 10/21/2023 12:45 PM Sedation End 10/21/2023 1:18 PM Procedure in Detail: A time out was performed prior to the start of the procedure and the correct patient, procedure, presence of consent, site, and side were confirmed with all members of the team. With the patient in the prone position, the skin overlying the area of interest was prepped and draped in the usual sterile fashion. Lidocaine 1% was used for local anesthesia. Using a posterior approach under CT image-guidance, a 19 gauge needle was advanced down to the lesion in the right lung. An image was obtained and placed into the medical record. Samples were obtained for evaluation. Sampling: Core Biopsy: A 20 gauge needle used to obtain samples for surgical pathology evaluation. Total number of samples: 2 Biosentry: A Biosentry device was deployed at the conclusion of the procedure. Post-biopsy radiographs: The initial follow-up chest radiograph demonstrates: No pneumothorax. A subsequent follow-up chest radiograph was obtained 3 hours after the initial and demonstrates: No pneumothorax. Specimens Disposition: Diagnostic Biopsy: The biopsy samples were submitted to pathology. Additional Comments: None Estimated Blood Loss: Minimal Immediate Complications: None Disposition: PACU Plan: No follow-up with Interventional Radiology required. Aleksandra CRUZ [facility] IR ORDERABLES * Pathology Biopsy Interpretation (10/21/2023 12:57 PM CDT) Submitted Clinical History Pulmonary nodules [J98.4] 10/22/2023 6:06 PM CDT [facility] Diagnosis A: Lung, right, diagnostic biopsy: METASTATIC RENAL CELL CARCINOMA, CLEAR CELL TYPE. NK/FMK 10/22/2023 6:06 PM CDT [facility] Comment Tumor is positive fo r PAX8 by immunohistochemical analysis. 10/22/2023 6:06 PM CDT [facility] Gross Description A: Lung, right, right lung diagnostic biopsy: 3 soft parisi tissue cores, 0.4 cm - 1.5 cm in length and 0.1 cm in diameter, entirely submitted in A1. ET 10/22/2023 6:06 PM CDT [facility] Biomarker Block(s) Tumor block: A1 Normal block: N/A 10/22/2023 6:06 PM CDT [facility] Disclaimer "Some tests reported here may have been developed and performance characteristics determined by [facility] Pathology and Laboratory Medicine. These tests have not been specifically cleared or approved by the U.S. Food and Drug Administration. If applicable, controls were reviewed and showed appropriate reactivity." 10/22/2023 6:06 PM CDT [facility] Tissue (Lung, Right) 10/21/2023 12:57 PM CDT 10/21/2023 2:33 PM CDT Aleksandra CRUZ [place] [address], * (ABNORMAL) POC Glucose Screen - Fingerstick (10/21/2023 12:00 PM CDT) Glucose Screen 128(H) 70 - 99 mg/dL 10/21/2023 12:01 PM CDT [facility] POC Sample Type Capillary 10/21/2023 12:01 PM CDT [facility] Blood 10/21/2023 12:0 0 PM CDT 10/21/2023 12:01 PM CDT Narrative [facility] - 10/21/2023 12:01 PM CDT Capillary blood samples, e.g. obtained by fingerstick, may have inaccurate results in patients with decreased peripheral blood flow. Method description: All results are measured using Electrochemistry test methodology. The glucose in the sample mixes with the reagents on the test strip. The reaction produces an electric current. The amount of current produced is proportional to the glucose concentration in the blood. All POC Glucose screen test results, including critical values, must be interpreted and evaluated in the context of the patients' clinical findings. It is recommended to confirm any questionable test results by core lab methodology. Aleksandra CRUZ POCT ORDERABLES - D EVICE [facility] Unless otherwise noted, all lab tests performed by: Division of Pathology and Laboratory Medicine [address] [place] [id number] * EKG, 12-Lead (Scheduled) (10/21/2023) Antonia CRUZ ECG ORDERABLES Performing Organization Address [facility]/ZIP Co de Phone Number ARVIN IECG * Historical ABORh (10/20/2023 2:59 PM CDT) ABORh O POS 10/20/2023 3:00 PM CDT [facility] - TRANSFUSION SERVICES Blood Peripheral blood specimen / Unknown 10/20/2023 2:59 PM CDT 10/20/2023 2:59 PM CDT Antonia CRUZ BLOOD BANK TEST ORDDesmond RODRIGUEZ Performing Organization Address [facility] Co de Phone Number [facility] - TRANSFUSION SERVICES [facility] Transfusion [facility] [address] [facility] [address] [place] [address] * (ABNORMAL) .CBC (10/20/2023 2:25 PM CDT) White Blood Cell 9.3 4.1 - 10.5 K/uL 10/20/2023 2:49 PM CDT [facility] Red Blood Cell 4.44 3.99 - 5.46 M/uL 10/20/2023 2:49 PM CDT [facility] Hemoglobin 11.7(L) 12.2 - 15.3 g/dL 10/20/2023 2:49 PM CDT [facility] Hematocrit 37.2 36.4 - 46.8 % 10/20/2023 2:49 PM CDT [facility] Mean Cell Volume 84 82 - 99 fL 10/20/2023 2:49 PM [facility] Mean Cell Hemoglobin 26.4(L) 26.6 - 33.2 pg 10/20/2023 2:49 PM [facility] Mean Cell Hemoglobin Concentration 31.5 31.1 - 35.2 g/dL 10/20/2023 2:49 PM [facility] RDW-SD 44.9 37.5 - 49.7 fL 10/20/2023 2:49 PM [facility] Red Cell Diameter Width 14.7 11.6 - 15.5 % 10/20/2023 2:49 PM [facility] Platelet 299 160 - 397 K/uL 10/20/2023 2:49 PM [facility] Mean Platelet Volume 9.1 9.1 - 12.6 fL 10/20/2023 2:49 PM [facility] INRBC 0.0 0.0 - 0.1 /100 WBC 10/20/2023 2:49 PM [facility] Comment: The INRBC (instrument NRBC) value reflects the enumeration of nucleated red blood cells contained in a 200uL sample of whole blood analyzed by the instrument. This value may differ from the NRBC value reported in a manual differential, which is based on a 100 cell differential. Neutrophil % 74.9(H) 43.2 - 72.7 % 10/20/2023 2:49 PM [facility] Lymphocyte % 19.4 16.8 - 46.2 % 10/20/2023 2:49 [facility] Monocyte % 4.4(L) 5.1 - 12.5 % 10/20/2023 2:49 PM [facility] Eosinophil % 0.8 0.4 - 6.3 % 10/20/2023 2:49 PM [facility] Basophil % 0.3 0.2 - 1.4 % 10/20/2023 2:49 PM [facility] IGRE % 0.2 0.1 - 1.5 % 10/20/2023 2:49 PM [facility] Comment:The IGRE% includes M etamyelocytes, Myelocytes and Promyelocytes. Neutrophil Abs 6.94 1.95 - 7.25 K/uL 10/20/2023 2:49 [facility] Lymphocyte Abs 1.80 1.01 - 3.24 K/uL 10/20/2023 2:49 PM CDT [facility] Monocyte Abs 0.41 0.24 - 0.85 K/uL 10/20/2023 2:49 PM CDT [facility] Eosinophil Abs 0.07 0.02 - 0.50 K/uL 10/20/2023 2:49 PM CDT [facility] Basophil Abs 0.03 0.02 - 0.09 K/uL 10/20/2023 2:49 PM CDT [facility] IG Abs 0.02 0.01 - 0.12 K/uL 10/20/2023 2:49 PM CDT [facility] Blood Peripheral blood specimen / Unknown Venipuncture / Unknown 10/20/2023 2:25 PM CDT 10/20/2023 2:26 PM CDT Antonia CRUZ LAB BLOOD ORDERABLES [facility] [address] [place] [address] * (ABNORMAL) Basic Metabolic Panel- Total Calcium (10/20/2023 2:25 PM CDT) eGFR 95 >=60 mL/min/1. 73 sq. m 10/20/2023 3:17 PM CDT [facility] Comment: The eGFRcr is calculated with the 2020 CKD-EPI creatinine equation using creatinine, patient's age, and sex for adults 18 years of age and older. Other factors, especially muscle mass, may affect accuracy and need to be considered. According to the Kidney Disease: Improving Global Outcomes (KDIGO) CKD Work Group 2012 Clinical Practice Guideline, chronic kidney disease (CKD) is defined as the abnormalities of kidney structure or function, present for more than 3 months, with implications for health. CKD should be classified by cause, GFR category, and albuminuria category. KDIGO guidelines provide the following GFR categories. Stage / Description / GFR mL/min/1.73 m2: G1* / Normal or high / >= 90 G2* / Mildly decreased / 60-89 G3a / Mildly to moderately decreased / 45-59 G3b / Moderately to severely decreased / 30-44 G4 / Severely decreased / 15-29 G5 / Kidney failure / <15 *In the absence of evidence of kidney damage, neither G1 nor G2 fulfill criteria for CKD. Calcium Level Total 10.5(H) 8.2 - 10.2 mg/dL 10/20/2023 3:17 PM CDT [facility] Sodium Level 141 136 - 145 mmol/L 10/20/2023 3:17 PM CDT [facility] Potassium Level 3.6 3.4 - 4.5 mmol/L 10/20/2023 3:17 PM CDT [facility] Chloride 100 98 - 107 mmol/L 10/20/2023 3:17 PM CDT [facility] CO2 29 22 - 29 mmol/L 10/20/2023 3:17 PM CDT [facility] Anion Gap 12 4 - 14 mmol/L 10/20/2023 3:17 PM CDT [facility] Creatinine 0.63 0.51 - 0.95 mg/dL 10/20/2023 3:17 PM CDT [facility] BUN 18 6 - 23 mg/dL 10/20/2023 3:17 PM CDT [facility] Glucose Level 141(H) 70 - 99 mg/dL 10/20/2023 3:17 PM CDT [facility] Comment: Effective 01/30/16, the glucose reference intervals have been updated based on [employer] guidelines (Standards of Medical Care in Diabetes 2016. Diabetes Care 2016; 39: S13-S22). Fasting blood glucose: Normal: 70-99 mg/dL Impaired fasting glucose (increased risk for diabetes or pre-diabetes): 100-125 mg/dL Diabetes mellitus: >/=126 mg/dL Random blood glucose: Normal: 70-199 mg/dL Note: Random glucose >100 mg/dL is associated with increased risk for diabetes. Blood Peripheral blood specimen / Unknown Venipuncture / Unknown 10/20/2023 2:25 PM CDT 10/20/2023 2:27 PM CDT Carolyne CRUZ LAB BLOOD ORDERABLES [facility] [address] [place] [address] * Prothrombin Time (10/20/2023 2:25 PM CDT) Pathologist [facility] Prothrombin Time 13.4 11.9 - 14.5 second(s) 10/20/2023 3:25 PM CDT [facility] International Normalization Ratio 1.06 0.87 - 1.12 10/20/2023 3:25 PM CDT [facility] Blood Peripheral blood specimen / Unknown Venipuncture / Unknown 10/20/2023 2:25 PM CDT 10/20/2023 2:38 PM CDT Antonia CRUZ LAB BLOOD ORDERABLES [facility] [address] [place] [address] * Type and Screen (10/20/2023 2:25 PM CDT) Pathologist [facility] ABORh O POS 10/20/2023 2:05 PM CDT [facility] ABSC Negative 10/20/2023 2:05 PM CDT [facility] Clot Expiration 10/23/2023 23:59 10/20/2023 2:05 PM CDT [facility] Historical Record Check Complete 10/20/2023 2:05 PM CDT [facility] Blood Peripheral blood specimen / Unknown Venipuncture / Unknown 10/20/2023 2:25 PM CDT 10/20/2023 2:27 PM CDT Antonia CRUZ BLOOD BANK TEST ORDE RABLES [facility] [id number] [place] [address] * CT Abdomen Pelvis with and without Contrast Kidney (09/29/2023 11:53 AM CDT) Anatomical Region Laterality Modality Abdomen, Pelvis Computed Tomogra phy 09/29/2023 12:0 1 PM CDT Impressions 09/29/2023 12:18 PM CDT 1. No evidence of recurrent nor metastatic disease in the abdomen or pelvis. 2. Hepatic steatosis. 3. Stable indeterminant pulmonary nodules in the imaged lower lungs. ACTIONABLE ITEMS/RECOMMENDATIONS*: None. *An Actionable Finding is a finding that may be unrelated to the original reason for imaging but potentially actionable, meaning further investigation may be necessary. The Actionable Findings Vigilance Unit (AFVU) assists medical providers with responding to additional radiologic findings that are unexpected and potentially actionable. Narrative 09/29/2023 12:18 PM CDT FULL RESULT: Examination: CT ABDOMEN PELVIS W WO CONTRAST KIDNEY on 09/29/2023 11:53 AM. Clinical History: Malignant neoplasm of unspecified kidney, except renal pelvis. Indication: History of renal cancer status post ablation. Oncologic surveillance. Comparison: CT 03/22/2023. Technique: CT ABDOMEN PELVIS W WO CONTRAST KIDNEY. FINDINGS: Lower Thorax: Stable 1.1 cm right lower lobe nodule (301/17). Stable 0.8 cm lingular nodule (301/7). Stable 3 mm right middle lobe nodule (301/1). Right lower lobe pneumatocele, stable. Bibasilar atelectasis. No pleural effusion. Hepatobiliary: Diffuse hepatic steatosis. No suspicious hepatic lesion is identified. Cholecystectomy. No abnormal biliary dilatation. Spleen: No splenomegaly. Pancreas: No mass or ductal dilatation. Adrenal Glands: No mass. Kidneys, Ureters, Bladder: Stable ablation cavity of the right inferior renal cortex. No findings to suggest local tumor recurrence. No new suspicious renal lesion. Stable 3.6 cm superior right cortical cyst containing layered calcification. Stable too small to characterize left cortical hypodensity, likely a cyst. No hydronephrosis. No bladder mass. Gastrointestinal Tract: Sigmoid diverticulosis without diverticulitis. No obstruction. Pelvic Organs: Hysterectomy. No pelvic mass. Peritoneum/Retroperitoneum: No ascites. Lymph Nodes: No lymphadenopathy. Vessel: Patent bilateral renal veins and IVC. No abdominal aortic aneurysm. Abdominal wall: Ventral abdominal wall hernia repair. Musculoskeletal: No suspicious skeletal lesion. Procedure Note Karla Gray MD - 09/29/2023 FULL RESULT: Examination: CT ABDOMEN PELVIS W WO CONTRAST KIDNEY on 09/29/2023 11:53AM. Clinical History: Malignant neoplasm of unspecified kidney, except renalpelvis. Indication: History of renal cancer status post ablation. Oncologicsurveillance. Comparison: CT 03/22/2023. Technique: CT ABDOMEN PELVIS W WO CONTRAST KIDNEY. FINDINGS: Lower Thorax: Stable 1.1 cm right lower lobe nodule (301/17). Stable 0.8cm lingular nodule (301/7). Stable 3 mm right middle lobe nodule (301/1).Right lower lobe pneumatocele, stable. Bibasilar atelectasis. No pleuraleffusion. Hepatobiliary: Diffuse hepatic steatosis. No suspicious hepatic lesion isidentified. Cholecystectomy. No abnormal biliary dilatation. Spleen: No splenomegaly. Pancreas: No mass or ductal dilatation. Adrenal Glands: No mass. Kidneys, Ureters, Bladder: Stable ablation cavity of the right inferiorrenal cortex. No findings to suggest local tumor recurrence. No newsuspicious renal lesion. Stable 3.6 cm superior right cortical cystcontaining layered calcification. Stable too small to characterize leftcortical hypodensity, likely a cyst. No hydronephrosis. No bladder mass. Gastrointestinal Tract: Sigmoid diverticulosis without diverticulitis. Noobstruction. Pelvic Organs: Hysterectomy. No pelvic mass. Peritoneum/Retroperitoneum: No ascites. Lymph Nodes: No lymphadenopathy. Vessel: Patent bilateral renal veins and IVC. No abdominal aorticaneurysm. Abdominal wall: Ventral abdominal wall hernia repair. Musculoskeletal: No suspicious skeletal lesion. IMPRESSION: 1. No evidence of recurrent nor metastatic disease in the abdomen orpelvis. 2. Hepatic steatosis. 3. Stable indeterminant pulmonary nodules in the imaged lower lungs. ACTIONABLE ITEMS/RECOMMENDATIONS*: None. *An Actionable Finding is a finding that may be unrelated to the originalreason for imaging but potentially actionable, meaning furtherinvestigation may be necessary. The Actionable Findings Vigilance Unit(AFVU) assists medical providers with responding to additional radiologicfindings that are unexpected and potentially actionable. Aleksandra CRUZ Donovan CT ORDERABLES * CT Chest without Contrast (09/29/2023 11:53 AM CDT) Anatomical Region Laterality Modality Chest Computed Tomogra phy 09/29/2023 1:25 PM CDT Impressions 09/29/2023 2:03 PM CDT Interval growth of pulmonary nodules, the largest of which are in the right lower lobe, concerning for metastatic disease, although the differential would include infection-inflammation. There are smaller nodules as well which were not definitely seen on prior exam and can be carefully followed. ACTIONABLE ITEMS/RECOMMENDATIONS*: None. *An Actionable Finding is a finding that may be unrelated to the original reason for imaging but potentially actionable, meaning further investigation may be necessary. The Actionable Findings Vigilance Unit (AFVU) assists medical providers with responding to additional radiologic findings that are unexpected and potentially actionable. (Please note: This document was created using a voice-recognition transcribing system, and incorrect words/phrases may have been inadvertently missed at proof-reading. Please contact me for clarification. If additional information becomes available, an addendum will be issued. Please see full report. Thank you.) Narrative 09/29/2023 2:03 PM CDT FULL RESULT: Examination: CT CHEST WO CONTRAST on 09/29/2023 11:53 AM. Clinical History: Solitary pulmonary nodule Indication: Incidental pulmonary nodule follow-up, Multiple incidental pulmonary nodules, Incidental pulmonary nodule, 6-8 mm, Incidental pulmonary nodule, solid appearing, Cancer staging or restaging, follow up pulm nodules, patient missed consult with pulmonary clinic Comparison: CT CHEST W CONTRAST on 04/04/2023 Technique: CT of the chest is performed without intravenous contrast. Findings: Lungs/Airways/Pleura: There are multiple pulmonary nodules. A nodule in the right lower lobe measures 1.1 cm on image 65. There is likely another nodule seen on image 59 which measures 0.9 cm. The nodule in the lingula measures 0.8 cm (302/53). There is a small nodule in the right lung on image 48 which measures 0.3 cm. There is a 0.6 cm nodule in the right upper lung on image 41 was not definitely measurable on prior exam. There is a punctate nodule on image 41. There is a 0.3 cm nodule on image 38. A small nodule is seen in the left upper lung on image 19. There is a nodule in the left lower lobe on image 72 Scarring changes are present. Other sample nodules are annotated on the imaging. There is a pneumatocele in the right lower lung. Neck/Mediastinum/Nodes/Heart: Stable low-attenuation lesions in the thyroid. Small nodes are identified. Atherosclerotic disease of the aorta. Coronary artery calcifications. Calcified node is noted. Upper abdomen: No suspicious hepatic lesions are identified. The gallbladder is intact. The spleen is normal in size. Partially calcified aortic aneurysm is noted. Please correlate with separately dictated abdomen and pelvis CT. Bones/Soft Tissues: Degenerative changes are present. Procedure Note Esmer Daniels MD - 09/29/2023 FULL RESULT: Examination: CT CHEST WO CONTRAST on 09/29/2023 11:53 AM. Clinical History: Solitary pulmonary nodule Indication: Incidental pulmonary nodule follow-up, Multiple incidentalpulmonary nodules, Incidental pulmonary nodule, 6-8 mm, Incidentalpulmonary nodule, solid appearing, Cancer staging or restaging, follow uppulm nodules, patient missed consult with pulmonary clinic Comparison: CT CHEST W CONTRAST on 04/04/2023 Technique: CT of the chest is performed without intravenous contrast. Findings: Lungs/Airways/Pleura: There are multiple pulmonary nodules. A nodule in the right lower lobe measures 1.1 cm on image 65. There islikely another nodule seen on image 59 which measures 0.9 cm. The nodule in the lingula measures 0.8 cm (302/53). There is a small nodule in the right lung on image 48 which measures 0.3cm. There is a 0.6 cm nodule in the right upper lung on image 41 was notdefinitely measurable on prior exam. There is a punctate nodule on image 41. There is a 0.3 cm nodule on image38. A small nodule is seen in the left upper lung on image 19. There is a nodule in the left lower lobe on image 72 Scarring changes are present. Other sample nodules are annotated on theimaging. There is a pneumatocele in the right lower lung. Neck/Mediastinum/Nodes/Heart: Stable low-attenuation lesions in thethyroid. Small nodes are identified. Atherosclerotic disease of the aorta.Coronary artery calcifications. Calcified node is noted. Upper abdomen: No suspicious hepatic lesions are identified. Thegallbladder is intact. The spleen is normal in size. Partially calcifiedaortic aneurysm is noted. Please correlate with separately dictatedabdomen and pelvis CT. Bones/Soft Tissues: Degenerative changes are present. IMPRESSION: Interval growth of pulmonary nodules, the largest of which are in theright lower lobe, concerning for metastatic disease, although thedifferential would include infection-inflammation. There are smallernodules as well which were not definitely seen on prior exam and can becarefully followed. ACTIONABLE ITEMS/RECOMMENDATIONS*: None. *An Actionable Finding is a finding that may be unrelated to the originalreason for imaging but potentially actionable, meaning furtherinvestigation may be necessary. The Actionable Findings Vigilance Unit(AFVU) assists medical providers with responding to additional radiologicfindings that are unexpected and potentially actionable. (Please note: This document was created using a voice-recognitiontranscribing system, and incorrect words/phrases may have beeninadvertently missed at proof-reading. Please contact me forclarification. If additional information becomes available, an addendumwill be issued. Please see full report. Thank you.) Aleksandra CRUZ IMG CT ORDERABLES * X-ray Chest 2 Views (09/29/2023 9:32 AM CDT) Anatomical Region Laterality Modality Chest Digital Radiogra phy 09/29/2023 9:41 AM CDT Impressions 09/29/2023 9:43 AM CDT No acute cardiac or pulmonary abnormality is detected and there are no radiographic findings of intrathoracic malignancy. ACTIONABLE ITEMS/RECOMMENDATIONS*: None. *An Actionable Finding is a finding that may be unrelated to the original reason for imaging but potentially actionable, meaning further investigation may be necessary. The Actionable Findings Vigilance Unit (AFVU) assists medical providers with responding to additional radiologic findings that are unexpected and potentially actionable. Narrative 09/29/2023 9:43 AM CDT FULL RESULT: Examination: XR CHEST 2 VW on 09/29/2023 9:32 AM. Clinical History: Malignant neoplasm of unspecified kidney, except renal pelvis. Indication: Restaging. Comparison: Chest 04/04/2023. Technique: Posteroanterior, lateral and dual-energy radiographs of the chest Findings: Support Apparatus: None. Lungs/Pleura/Mediastinum: No focal abnormal pulmonary opacities suspicious for acute infection or malignancy. The mediastinal contours and cardiac silhouette are stable. Procedure Note Ian Botello MD - 09/29/2023 FULL RESULT: Examination: XR CHEST 2 VW on 09/29/2023 9:32 AM. Clinical History: Malignant neoplasm of unspecified kidney, except renalpelvis. Indication: Restaging. Comparison: Chest 04/04/2023. Technique: Posteroanterior, lateral and dual-energy radiographs of thechest Findings: Support Apparatus: None. Lungs/Pleura/Mediastinum: No focal abnormal pulmonary opacities suspiciousfor acute infection or malignancy. The mediastinal contours and cardiacsilhouette are stable. IMPRESSION: No acute cardiac or pulmonary abnormality is detected and there are noradiographic findings of intrathoracic malignancy. ACTIONABLE ITEMS/RECOMMENDATIONS*: None. *An Actionable Finding is a finding that may be unrelated to the originalreason for imaging but potentially actionable, meaning furtherinvestigation may be necessary. The Actionable Findings Vigilance Unit(AFVU) assists medical providers with responding to additional radiologicfindings that are unexpected and potentially actionable. Aleksandra CRUZ IMG DIAGNOSTIC IMAG ING ORDERABLES * (ABNORMAL) Hemogram (09/29/2023 8:03 AM CDT) White Blood Cell 8.3 4.1 - 10.5 K/uL 09/29/2023 8:09 AM CDT [facility] Red Blood Cell 4.50 3.99 - 5.46 M/uL 09/29/2023 8:09 AM CDT [facility] Hemoglobin 11.4(L) 12.2 - 15.3 g/dL 09/29/2023 8:09 AM CDT [facility] Hematocrit 36.7 36.4 - 46.8 % 09/29/2023 8:09 AM T [facility] Mean Cell Volume 82 82 - 99 fL 09/29/2023 8:09 AM CDT [facility] Mean Cell Hemoglobin 25.3(L) 26.6 - 33.2 pg 09/29/2023 8:09 AM CDT [facility] Mean Cell Hemoglobin Concentration 31.1 31.1 - 35.2 g/dL 09/29/2023 8:09 AM T [facility] RDW-SD 44.4 37.5 - 49.7 fL 09/29/2023 8:09 AM CDT [facility] Red Cell Diameter Width 14.9 11.6 - 15.5 % 09/29/2023 8:09 AM CDT [facility] Platelet 302 160 - 397 K/uL 09/29/2023 8:09 AM CDT [facility] Mean Platelet Volume 9.0(L) 9.1 - 12.6 fL 09/29/2023 8:09 AM CDT [facility] INRBC 0.0 0.0 - 0.1 /100 WBC 09/29/2023 8:09 AM CDT [facility] Comment: The INRBC (instrument NRBC) value reflects the enumeration of nucleated red blood cells contained in a 200uL sample of whole blood analyzed by the instrument. This value may differ from the NRBC value reported in a manual differential, which is based on a 100 cell differential. Blood Venipuncture / Unknown 09/29/2023 8:03 AM CDT 09/29/2023 8:05 AM CDT Aleksandra CRUZ LAB BLOOD ORDERABLE S [facility] Unless otherwise noted, all lab tests performed by: Division of Pathology and Laboratory Medicine [address] [place] [id number] * (ABNORMAL) Comprehensive Metabolic Panel (09/29/2023 8:03 AM CDT) Bilirubin Total <0.3 0.0 - 1.2 mg/dL 09/29/2023 8:43 AM CDT [facility] Comment: Direct and indirect bilirubin will not be reported when Total bilirubin result is <0.3 mg/dL Indocyanine Green (ICG) may cause falsely elevated bilirubin results. Total and direct bilirubin must not be measured from samples containing indocyanine green. False elevation of total bilirubin can be seen in patients with IgG concentrations above 28 g/L. Bilirubin Direct 09/29/19 8:43 AM CDT [facility] Comment: Direct and indirect bilirubin will not be reported when Total bilirubin result is <0.3 mg/dL Indocyanine Green (ICG) may cause falsely elevated bilirubin results. Total and direct bilirubin must not be measured from samples containing indocyanine green. Bilirubin Indirect 2023 8:43 AM [facility] Comment:Direct and indirect bilirubin will not be reported when Total bilirubin result is <0.3 mg/dL eGFR 96 >=60 mL/min/1. 73 sq. m 09/29/2023 8:43 AM [facility] Comment: The eGFRcr is calculated with the 2020 CKD-EPI creatinine equation using creatinine, patient's age, and sex for adults 18 years of age and older. Other factors, especially muscle mass, may affect accuracy and need to be considered. According to the Kidney Disease: Improving Global Outcomes (KDIGO) CKD Work Group 2012 Clinical Practice Guideline, chronic kidney disease (CKD) is defined as the abnormalities of kidney structure or function, present for more than 3 months, with implications for health. CKD should be classified by cause, GFR category, and albuminuria category. KDIGO guidelines provide the following GFR categories. Stage / Description / GFR mL/min/1.73 m2: G1* / Normal or high / >= 90 G2* / Mildly decreased / 60-89 G3a / Mildly to moderately decreased / 45-59 G3b / Moderately to severely decreased / 30-44 G4 / Severely decreased / 15-29 G5 / Kidney failure / <15 *In the absence of evidence of kidney damage, neither G1 nor G2 fulfill criteria for CKD. Tot Protein 7.8 6.4 - 8.3 gm/dL 09/29/2023 8:43 AM [facility] Calcium Level Total 10.1 8.2 - 10.2 mg/dL 09/29/2023 8:43 AM [facility] Alkaline Phosphatase 85 35 - 104 U/L 09/29/2023 8:43 AM [facility] Albumin Level 4.4 3.5 - 5.2 gm/dL 09/29/2023 8:43 AM [facility] AST 13 <=32 U/L 09/29/2023 8:43 AM [facility] ALT 13 <=33 U/L 09/29/2023 8:43 AM [facility] Sodium Level 142 136 - 145 mmol/L 09/29/2023 8:43 AM [facility] Potassium Level 4.0 3.4 - 4.5 mmol/L 09/29/2023 8:43 AM CDT [facility] Chloride 102 98 - 107 mmol/L 09/29/2023 8:43 AM CDT [facility] CO2 30(H) 22 - 29 mmol/L 09/29/2023 8:43 AM CDT [facility] Anion Gap 10 4 - 14 mmol/L 09/29/2023 8:43 AM CDT [facility] Creatinine 0.60 0.51 - 0.95 mg/dL 09/29/2023 8:43 AM CDT [facility] BUN 14 6 - 23 mg/dL 09/29/2023 8:43 AM CDT [facility] Glucose Level 152(H) 70 - 99 mg/dL 09/29/2023 8:43 AM CDT [facility] Comment: Effective 01/30/16, the glucose reference intervals have been updated based on [employer] guidelines (Standards of Medical Care in Diabetes 2016. Diabetes Care 2016; 39: S13-S22). Fasting blood glucose: Normal: 70-99 mg/dL Impaired fasting glucose (increased risk for diabetes or pre-diabetes): 100-125 mg/dL Diabetes mellitus: >/=126 mg/dL Random blood glucose: Normal: 70-199 mg/dL Note: Random glucose >100 mg/dL is associated with increased risk for diabetes. Blood Venipuncture / Unknown 09/29/2023 8:03 AM CDT 09/29/2023 8:05 AM CDT Aleksandra CRUZ LAB BLOOD ORDERABLE S [facility] Unless otherwise noted, all lab tests performed by: Division of Pathology and Laboratory Medicine [address] [place] [id number] * CT Chest with Contrast (04/04/2023 2:22 PM CDT) Anatomical Region Laterality Modality Chest Computed Tomogra phy 04/04/2023 8:20 PM CDT Impressions 04/04/2023 8:35 PM CDT 1. New indeterminate pulmonary nodules in the lingula and right lower lobe, possibly representing infectious/inflammatory process or metastatic disease. Other nonspecific small pulmonary nodules are stable. 2. Stable low-attenuation thyroid nodules can be better evaluated by dedicated ultrasonography if clinically indicated. ACTIONABLE ITEMS/RECOMMENDATIONS: See IMPRESSION. Narrative 04/04/2023 8:35 PM CDT FULL RESULT: Examination: CT CHEST W CONTRAST on 04/04/2023 2:22 PM. Clinical History: Solitary pulmonary nodule Indication: Incidental pulmonary nodule follow-up, Incidental solitary pulmonary nodule, Incidental pulmonary nodule, 8 mm or more, Incidental pulmonary nodule, solid appearing, 8 mm new nodule for which radiology recommended dedicated CT chest Comparison: 10/02/2020 Technique: CT of the chest is performed with intravenous contrast Findings: Lungs/Airways/Pleura: There is a new 8 mm pulmonary nodule in the lingula on image 68 of series 7. Also noted a 2 mm right lower lobe nodule on image 51, not clearly seen on prior imaging additional small pulmonary nodules seen on images 25 and 48 of series 7 are stable. No pulmonary nodule, mass or consolidation is seen. There are no pleural effusions. Neck/Mediastinum/Nodes/Heart: Stable low-attenuation nodules in the thyroid gland measuring up to 1.4 cm. There is no mediastinal or hilar lymphadenopathy. The heart is normal in size. No pericardial effusion. Upper abdomen: Limited imaging through the upper abdomen shows normal adrenal glands. Stable exophytic cystic lesion in the upper pole of the right kidney containing layering calcification is a malignancy in the lower pole of the right kidney was not imaged in the present study. Status post cholecystectomy. Bones/Soft Tissues: No destructive bone lesions. Procedure Note Tameka Sheffield C.B., MD - 04/04/2023 FULL RESULT: Examination: CT CHEST W CONTRAST on 04/04/2023 2:22 PM. Clinical History: Solitary pulmonary nodule Indication: Incidental pulmonary nodule follow-up, Incidental solitarypulmonary nodule, Incidental pulmonary nodule, 8 mm or more, Incidentalpulmonary nodule, solid appearing, 8 mm new nodule for which radiologyrecommended dedicated CT chest Comparison: 10/02/2020 Technique: CT of the chest is performed with intravenous contrast Findings: Lungs/Airways/Pleura: There is a new 8 mm pulmonary nodule in the lingulaon image 68 of series 7. Also noted a 2 mm right lower lobe nodule onimage 51, not clearly seen on prior imaging additional small pulmonarynodules seen on images 25 and 48 of series 7 are stable. No pulmonarynodule, mass or consolidation is seen. There are no pleural effusions. Neck/Mediastinum/Nodes/Heart: Stable low-attenuation nodules in thethyroid gland measuring up to 1.4 cm. There is no mediastinal or hilarlymphadenopathy. The heart is normal in size. No pericardial effusion. Upper abdomen: Limited imaging through the upper abdomen shows normaladrenal glands. Stable exophytic cystic lesion in the upper pole of theright kidney containing layering calcification is a malignancy in thelower pole of the right kidney was not imaged in the present study. Statuspost cholecystectomy. Bones/Soft Tissues: No destructive bone lesions. IMPRESSION: 1. New indeterminate pulmonary nodules in the lingula and right lowerlobe, possibly representing infectious/inflammatory process or metastaticdisease. Other nonspecific small pulmonary nodules are stable. 2. Stable low-attenuation thyroid nodules can be better evaluated bydedicated ultrasonography if clinically indicated. ACTIONABLE ITEMS/RECOMMENDATIONS: See IMPRESSION. Aleksandra CRUZ IMG CT ORDERABLES * CT Abdomen Pelvis with and without Contrast (03/22/2023 10:56 AM CDT) Anatomical Region Laterality Modality Abdomen, Pelvis Computed Tomogra phy 03/22/2023 11:0 0 AM CDT Impressions 03/22/2023 11:03 PM CDT Stable post ablation changes in the right kidney without residual or recurrent disease. No metastatic disease identified in the abdomen or pelvis. Stable indeterminate left lung pulmonary nodule. Consider further evaluation by follow-up by dedicated CT chest. ACTIONABLE ITEMS/RECOMMENDATIONS: Significant Finding: Indeterminate left lung pulmonary nodule Recommendation: Follow up by dedicated CT chest. Narrative 03/22/2023 11:03 PM CDT Examination: CT ABDOMEN PELVIS W WO CONTRAST on 03/22/2023 10:56 AM. Clinical History: Malignant neoplasm of unspecified kidney, except renal pelvis. Indication: history of ablated renal cancer, characterize any disease in the abdomen. Comparison: 03/24/2022 Technique: CT of the abdomen and pelvis with and without intravenous contrast. FINDINGS: Lower Thorax: Stable 0.8 cm nodule in the left upper lobe in image 3 series 303 when compared to [address] CT, new compared to 2020. Hepatobiliary: Stable 1 cm hemangioma in hepatic segment 7 in image 35 series 306. No suspicious hepatic lesions. No biliary dilatation. Cholecystectomy. Spleen: No splenomegaly. Pancreas: No mass or dilatation. Adrenal Glands: No masses. Kidneys, Ureters, Bladder: Stable post ablation changes in the lower pole of the right kidney without findings to suggest recurrent or residual disease. Stable bilateral renal cysts including a 3.6 cm exophytic cyst upper pole right kidney containing layering calcification. No hydronephrosis. No renal masses. No bladder mass. Gastrointestinal Tract: No obstruction. Pelvic Organs: No pelvic masses. Hysterectomy. Peritoneum/Retroperitoneum: No ascites. Lymph Nodes: No adenopathy. Lines and Tubes: None Musculoskeletal: No suspicious skeletal lesions. Procedure Note Peter Pinto MD - 03/22/2023 Examination: CT ABDOMEN PELVIS W WO CONTRAST on 03/22/2023 10:56 AM. Clinical History: Malignant neoplasm of unspecified kidney, except renalpelvis. Indication: history of ablated renal cancer, characterize any disease inthe abdomen. Comparison: 03/24/2022 Technique: CT of the abdomen and pelvis with and without intravenouscontrast. FINDINGS: Lower Thorax: Stable 0.8 cm nodule in the left upper lobe in image 3series 303 when compared to recent CT, new compared to 2020. Hepatobiliary: Stable 1 cm hemangioma in hepatic segment 7 in image 35series 306. No suspicious hepatic lesions. No biliary dilatation.Cholecystectomy. Spleen: No splenomegaly. Pancreas: No mass or dilatation. Adrenal Glands: No masses. Kidneys, Ureters, Bladder: Stable post ablation changes in the lower poleof the right kidney without findings to suggest recurrent or residualdisease. Stable bilateral renal cysts including a 3.6 cm exophytic cystupper pole right kidney containing layering calcification. Nohydronephrosis. No renal masses. No bladder mass. Gastrointestinal Tract: No obstruction. Pelvic Organs: No pelvic masses. Hysterectomy. Peritoneum/Retroperitoneum: No ascites. Lymph Nodes: No adenopathy. Lines and Tubes: None Musculoskeletal: No suspicious skeletal lesions. IMPRESSION: Stable post ablation changes in the right kidney without residual orrecurrent disease. No metastatic disease identified in the abdomen or pelvis. Stable indeterminate left lung pulmonary nodule. Consider furtherevaluation by follow-up by dedicated CT chest. ACTIONABLE ITEMS/RECOMMENDATIONS: Significant Finding: Indeterminate leftlung pulmonary nodule Recommendation: Follow up by dedicated CT chest. Aleksandra CRUZ IMG CT ORDERABLES * POC Creatinine (03/22/2023 9:16 AM CDT) POC Crea 0.6 0.6 - 1.3 mg/dL POC TELCOR Comment: Medications, especially hydroxyurea or supplements, such as ascorbate, can interfere with test results causing a falsely and significantly higher result than expected. If a problem is suspected with a patient's result, a sample should be sent to the laboratory for confirmatory testing. Method description: The i-STAT is an analyzer used for in vitro quantification of various analytes in whole blood. The device uses a single disposable cartridge which contains microfabricated sensors, a calibration solution, fluidics system, and a waste chamber. Each test cartridge contains chemically sensitive biosensors on a silicon chip that are configured to perform specific tests. The microfabricated sensors measure analyte concentration by an electrochemical assay. POC EGFR 96 >=60 mL/min/1. 73 sq. m POC TELCOR Comment: The eGFRcr is calculated with the 2020 CKD-EPI creatinine equation using creatinine, patient's age, and sex for adults 18 years of age and older. Other factors, especially muscle mass, may affect accuracy and need to be considered. According to the Kidney Disease: Improving Global Outcomes (KDIGO) CKD Work Group 2012 Clinical Practice Guideline, chronic kidney disease (CKD) is defined as the abnormalities of kidney structure or function, present for more than 3 months, with implications for health. CKD should be classified by cause, GFR category, and albuminuria category. KDIGO guidelines provide the following GFR categories Stage Description GFR mL/min/1.73 m2 G1* Normal or high >= 90 G2* Mildly decreased 60-89 G3a Mildly to moderately decreased 45-59 G3b Moderately to severely decreased 30-44 G4 Severely decreased 15-29 G5 Kidney failure <15 *In the absence of evidence of kidney damage, neither G1 nor G2 fulfill criteria for CKD. POC Clean Dev Yes POC TEL[facility] Performing Lab [facility] POC TELCOR Comment:[facility], [address] [place] [address]; Sugarcane Planter: Kennedi Ratliff MD; Waived Point of Care Testing - Marnie Victoria MD Blood 03/22/2023 9:16 AM CDT 03/22/2023 9:16 AM CDT Aleksandra CRUZ POCT ORDERABLES - Shana LEROY POC TELCOR Unless otherwise noted, all lab tests performed by: Division of Pathology and Laboratory Medicine [facility] [place] [address] * CA 125 (11/24/2022 1:14 PM CDT) CA 125 5.5 <=38.0 U/mL WEST Comment: Results greater than 11,500.0 U/L may not be reliable due to matrix effect with extended dilution as it exceeds the cheese factory worker s recommended limit. Caution should be exercised when interpreting such values and done in conjunction with clinical context. Reference intervals are not available for male patients. Results should be interpreted in conjunction with clinical context. This test is measured by electrochemiluminescence immunoassay on Connie Michelle immunoassay analyzers. Results obtained in different methods are not interchangeable. Testing performed at [facility], [address] [place] [id number] Blood 11/24/2022 1:14 PM CDT 11/24/2022 1:14 PM CDT Alice CRUZ LAB BLOOD ORDERABLES ABDI MARTIN [facility] [address], [address] [place] [address] after 11/11/2022 Care Teams Senior Manufacturing Test Engineer Relationship Specialty Start Date End Date Laron Lambert MD [address] [place] [id number] PCP - External Primary Care Provider Family Practice 01/13/19 Raj Mansfield MD [address] [place] [id number] PCP - General Gynecological Oncology 01/13/19 Venkatesh Bro MD [address] [place] [phone] Consulting Physician Pain Management 11/07/19 Lenka Ortiz MD [address] [place] [phone] Consulting Physician Urology 04/28/19 Dioni Mack MD [address] [place] [phone] Consulting Physician Genitourinary Oncology 10/30/23
[2023-11-11] MEDS ORDERED: IBUPROFEN 400 MG TAB ONE (20:29)
[2023-11-11] MEDS ORDERED: CEPHALEXIN 250 MG CAP ONE (20:29)
[2023-11-11] MEDS ORDERED: HYDROCODONE/APAP 5/325 MG TAB ONE (20:30)
[2023-11-11] MEDS ORDERED: MORPHINE 4 MG/ML SYR ONE ×2 (20:32→23:32)
[2023-11-11] MEDS ORDERED: ONDANSETRON 4 MG/2 ML VIAL ONE (20:32)
[2023-11-11] MEDS ORDERED: methocarbamoL 750 MG TAB ONE (20:32)
[2023-11-11] MEDS ORDERED: NA CHLORIDE 0.9% 1,000 ML ONE (20:33)
[2023-11-11 20:37] LABS: Absolute Eosinophils 0.1 K/uL (0-0.5); Absolute Lymphocytes (CBC) 1.8 K/uL (0.7-4.9); Absolute Monocytes 0.4 K/uL (0.1-1.3); Absolute Neutrophil 7.3 K/uL (1.8-8.0); Basophils % 0.4 % (0-1.3); Eosinophils % 0.7 % (0-4.4); Hematocrit 33.7 % (36.0-45.0); Lymphocytes % 19.2 % (15.3-44.8); MCH 25.9 pg (27.0-35.0); MCHC 32.5 g/dL (32.0-36.0); MCV 79.7 fL (80-100); MPV 6.6 fL (7.6-11.3); Monocytes % 3.7 % (3.3-12.3); Platelets 342 thou/uL (152-406); RBC Red Blood Cell Count 4.23 M/uL (3.86-4.86); Red Cell Distribution Width 15.1 % (12.1-15.2)
[2023-11-11 20:40] LABS: PT Prothrombin Time 12.8 SECONDS (9.5-12.5); Protime INR 1.17
[2023-11-11 20:56] LABS: ALT/SGPT 15 U/L (13-56); Albumin 3.1 g/dL (3.4-5.0); Albumin/Globulin Ratio 0.7 (1.1-1.8); Alkaline Phosphatase 85 U/L (45-117); Anion Gap 10.1 mEq/L (5.0-15.0); BUN Blood Urea Nitrogen 24 mg/dL (7-18); Bicarbonate 30 mEq/L (21-32); Bilirubin Total 0.2 mg/dL (0.2-1.0); Creatine Phosphokinase 32 U/L (26-192); Globulin 4.7 g/dL (2.3-3.5); Glomerular Filtration Rate 69 ml/min (=/>90); Glucose Level 171 mg/dL (74-106); Lipase 27 U/L (13-75); Potassium 3.1 mEq/L (3.5-5.1); Protein, Total 7.8 g/dL (6.4-8.2); Sodium Level 139 mEq/L (136-145)
[2023-11-11 20:58] LABS: AST/SGOT < 10 U/L (15-37)
[2023-11-11 21:56] LABS: Specific Gravity 1.021 (1.005-1.030); Sqamous Epithelial None Seen /HPF (None Seen); Urine Bacteria None Seen /HPF (<20); Urine Bilirubin NEGATIVE (Negative); Urine Blood Trace (Negative); Urine Clarity Clear (Clear); Urine Color Light-Yellow (Yellow); Urine Culture Reflex Order NOT NEEDED; Urine Glucose NEGATIVE (Negative); Urine Ketones NEGATIVE (Negative); Urine Microscopic Reflex YN ORDER UMIC; Urine Mucus Slight /HPF (None Seen); Urine Nitrite NEGATIVE (Negative); Urine Protein NEGATIVE (Negative); Urine RBC <5 /HPF (None Seen); Urine Urobilinogen Normal (Normal); Urine WBC <5 /HPF (<5); Urine pH 5.5 (5.0-7.0)
--- NOTE | 2023-11-11 21:58 | RAD REPORT ---
EXAM DESCRIPTION: US - Extrem Venous W Compress Luis - 11/11/2023 9:52 pm CLINICAL HISTORY: cancer and leg pain Bilateral leg edema and swelling. COMPARISON: No comparisons TECHNIQUE: Real-time sonographic interrogation of the left and right lower extremity deep venous sys tems was performed. FINDINGS: Normal compressibility, flow augmentation, phasic flow and spontaneous flow is identified in both the left and right lower extremity deep venous systems. IMPRESSION: No sonographic evidence of left or right lower extremity deep venous thrombosis.
--- NOTE | 2023-11-11 22:07 | RAD REPORT ---
EXAM DESCRIPTION: CT - Chest Abdomen Pelvis W Cont - 11/11/2023 9:54 pm CLINICAL HISTORY: Chest and abdomen pain. cancer and abdominal pain COMPARISON: No comparisons TECHNIQUE: Approximately 100 mL nonionic IV contrast was administered to the patient. All CT scans are performed using dose optimization technique as appropriate and may include automated exposure control or mA/KV adjustment according to patient size. FINDINGS: 7 mm nodule is seen lateral right middle lobe.15 mm nodule is present in the medial right lung base. 7 mm nodule left lung base posteriorly.No pleural or pericardial effusion.Mildly enlarged right hilar lymph nodes. The liver demonstrates diffuse fatty infiltration. Spleen, pancreas, adrenal glands and kidneys are w ithin normal limits. 3.2 cm right renal upper pole cyst. No bowel obstruction, free air, free fluid or abscess. Normal appendix. No pathologic lymphadenopath y in the abdomen or pelvis. 3.0 x 2.4 cm soft tissue mass is seen with destructive changes right femoral head/ neck junction. IMPRESSION: 3 cm soft tissue mass with destructive changes right femoral head/ neck junction likely bony metastasis. Bilateral pulmonary nodules noted, presumably metastatic in nature. Fatty liver.
--- NOTE | 2023-11-11 22:39 | ER ---
Nurse's Notes [facility] Name: Radha Quiroz Age: 73 yrs Sex: Female : 1950 Arrival Date: 11/11/2023 Time: 19:55 Bed 17 Private MD: Diagnosis: Metastatic lesion right hip and femur, right adrenal mass, pulmonary nodules, metastatic renal carcinoma Presentation: 11/10 19:58 Chief complaint: EMS states: 73 year old female reports pain on the right hip and leg ha1 since Thursday. Stage four cancer reports concern about her cancer spreading to her bones. 19:58 Coronavirus screen: Vaccine status: Patient reports receiving the 2nd dose of the covid ha1 vaccine. Ebola Screen: No symptoms or risks identified at this time. Initial Sepsis Screen: Does the patient meet any 2 criteria? No. Patient's initial sepsis screen is negative. Does the patient have a suspected source of infection? No. Patient's initial sepsis screen is negative. Risk Assessment: Do you want to hurt yourself or someone else? Patient reports no desire to harm self or others. Onset of symptoms was November 11, 2023. 19:58 Method Of Arrival: EMS: [facility] ha1 19:58 Acuity: FABIOLA 3 ha1 Triage Assessment: 19:58 General: Appears uncomfortable, Behavior is calm, cooperative. Pain: Complains of pain ha1 in right leg and right hip Pain does not radiate. Pain currently is 10 out of 10 on a pain scale. Quality of pain is described as aching, throbbing, Pain began suddenly, 2-3 days ago. Neuro: Level of Consciousness is awake, alert, obeys commands, Oriented to person, place, time, situation. Cardiovascular: Capillary refill < 3 seconds Patient's skin is warm and dry. Respiratory: Airway is patent Respiratory effort is even, unlabored, Respiratory pattern is regular, symmetrical. GI: No signs and/or symptoms were reported involving the gastrointestinal system. Abdomen is round non-distended. : No signs and/or symptoms were reported regarding the genitourinary system. Derm: Skin is pink, warm \\T\\ dry. Musculoskeletal: Range of motion: limited in right leg Reports pain in right leg. Historical: - Allergies: 20:04 NKA; ha1 - PMHx: 20:04 Hypertension; Diabetes mellitus; stage four cancer; Hypercholesterolemia; ha1 - Immunization history:: Adult Immunizations up to date. - Infectious Disease History:: Denies. - Social history:: Smoking status: Patient/guardian denies using tobacco, the patient reports quitting approximately 13 years ago. - Family history:: not pertinent. Screenin:58 [facility] ED Fall Risk Assessment (Adult) History of falling in the last 3 months, rv including since admission No falls in past 3 months (0 pts) Impaired Gait Yes (1 pt) Score/Fall Risk Level 0 - 2 = Low Risk Oriented to surroundings, Maintained a safe environment, Educated pt \\T\\ family on fall prevention, incl call for assistance when getting out of bed, Assessed \\T\\ reinforced patient's understanding of fall precautions. Abuse screen: Denies threats or abuse. Denies injuries from another. Nutritional screening: No deficits noted. Tuberculosis screening: No symptoms or risk factors identified. Assessment: 20:00 Reassessment: see triage assessment. ha1 21:00 Reassessment: Patient and/or family updated on plan of care and expected duration. Pain ha1 level reassessed. Patient is alert, oriented x 3, equal unlabored respirations, skin warm/dry/pink. 22:00 Reassessment: Patient and/or family updated on plan of care and expected duration. Pain ha1 level reassessed. Patient is alert, oriented x 3, equal unlabored respirations, skin warm/dry/pink. 23:00 Reassessment: Patient and/or family updated on plan of care and expected duration. Pain ha1 level reassessed. Patient is alert, oriented x 3, equal unlabored respirations, skin warm/dry/pink. Vital Signs: 19:58 BP 124 / 83; Pulse 96; Resp 18; Temp 98; Pulse Ox 100% ; rv 21:00 BP 118 / 54; Pulse 93; Resp 17 S; Pulse Ox 100% on R/A; ha1 21:30 BP 119 / 56; Pulse 90; Resp 16 S; Pulse Ox 96% on R/A; ha1 22:00 BP 115 / 60; Pulse 94; Resp 17 S; Pulse Ox 100% on R/A; ha1 23:00 BP 121 / 61; Pulse 87; Resp 16 S; Pulse Ox 98% on R/A; ha1 23:50 BP 122 / 64; Pulse 86; Resp 16 S; Pulse Ox 97% on R/A; ha1 [place] Coma Score: 19:58 Eye Response: spontaneous(4). Motor Response: obeys commands(6). Verbal Response: rv oriented(5). Total: 15. ED Course: 19:58 Patient arrived in ED. rv 19:58 Patient has correct armband on for positive identification. Client placed on continuous rv cardiac and pulse oximetry monitoring. NIBP monitoring applied. 19:58 Arm band placed on right wrist. ha1 19:58 No provider procedures requiring assistance completed. rv 20:04 Triage completed. ha1 20:09 Jacinto Buckner MD is Attending Physician. sp4 20:15 Inserted saline lock: 20 gauge in right antecubital area, using aseptic technique. ha1 Blood collected. 20:29 Tiffanie Felipe, RN is Primary Nurse. ha1 20:29 CBC with Diff Sent. ha1 20:29 CMP Sent. ha1 20:29 Lipase Sent. ha1 21:00 Urban cath inserted, using sterile technique, 16 Fr., by il, balloon inflated, to ha1 gravity drainage, urine specimen collected. returned clear yellow urine. Patient tolerated well. 21:54 Extrem Venous W Compression Luis US In Process Unspecified. EDMS 21:56 CT Chest, Abdomen, Pelvis - W/Contrast In Process Unspecified. EDMS 22:39 Initiated transfer to [facility], spoke with "Aleksandra". 23:12 Pt accepted for transfer to [facility] ER by Dr. Weiner per Aleksandra with being the accepting admin as well. 23:30 EMS will transfer with an ETA for flower picker \\T\\ [id number]. 11/11 01:14 Provided Education on: need for transfer . 1 01:14 Patient transferred, IV remains in place. ha1 Administered Medications: 11/10 20:40 Drug: Ondansetron IVP 4 mg IVP once; over 2 minutes Route: IVP; Site: right antecubital;ha1 21:10 Follow up: Response: No adverse reaction ha1 23:55 Follow up: Response: No adverse reaction; Marked relief of symptoms; Pain is decreased; ha1 RASS: Alert and Calm (0) 20:43 Drug: NS 0.9% IV 1000 ml IV at 1 bolus Per protocol; 1000 mL bolus Route: IV; Rate: 1 ha1 bolus; Site: right antecubital; 20:43 Drug: Methocarbamol PO 1500 mg PO once Route: PO; ha1 21:10 Follow up: Response: No adverse reaction; Marked relief of symptoms ha1 21:00 Drug: morphine IVP or IV 6 mg IVP once over 4 mins Route: IVP; Infused Over: 4 mins; ha1 Site: right antecubital; 21:30 Follow up: Response: No adverse reaction; Pain is decreased; RASS: Alert and Calm (0) ha1 23:25 Drug: morphine IVP or IV 6 mg IVP once over 4 mins Route: IVP; Infused Over: 4 mins; ha1 Site: right antecubital; 23:55 Follow up: Response: No adverse reaction; Pain is decreased; RASS: Alert and Calm (0) ha1 Medication: 19:58 VIS not applicable for this client. rv Outcome: 22:38 ER care complete, transfer ordered by . sp4 11/11 01:13 Transferred by ground EMS to [facility], Transfer form completed. X-rays sent ha1 w/ patient. Condition: stable Instructed on the need for transfer, Demonstrated understanding of instructions, 01:15 Patient left the ED. ha1 Signatures: Dispatcher [employer] EDMS Phillip Bah RN RN rv Molly Patiño Heidy, RN RN 1 Jacinto Buckner MD MD sp4 Corrections: (The following items were deleted from the chart) 11/10 23:53 20:42 morphine IVP or IV 6 mg IVP in right antecubital over 4 mins ha1 ha1
--- NOTE | 2023-11-11 22:39 | EDPHYS ---
Physician Documentation [facility] Name: Radha Quiroz Age: 73 yrs Sex: Female : 1950 Arrival Date: 11/11/2023 Time: 19:55 Bed 17 Private MD: ED Physician Jacinto Buckner HPI: 11/10 20:09 This 73 yrs old Female presents to ER via EMS with complaints of Gen complaint sp4 . 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 . Historical: - Allergies: 20:04 NKA; ha1 - PMHx: 20:04 Hypertension; Diabetes mellitus; stage four cancer; Hypercholesterolemia; ha1 - Immunization history:: Adult Immunizations up to date. - Infectious Disease History:: Denies. - Social history:: Smoking status: Patient/guardian denies using tobacco, the patient reports quitting approximately 13 years ago. - Family history:: not pertinent. ROS: 23:20 Constitutional: Negative for fever, chills, and weight loss, MS/Extremity: Positive sp4 moderate to severe right hip pain unable to bear weight 23:20 All other systems are negative, Exam: 23:20 Constitutional: This is a well developed, well nourished patient who is awake, alert, sp4 and in no acute distress. Head/Face: Normocephalic, atraumatic. Eyes: Pupils equal round and reactive to light, extra-ocular motions intact. Lids and lashes normal. Conjunctiva and sclera are not injected. Cornea within normal limits. Periorbital areas with no swelling, redness, or edema. ENT: Nares patent. No nasal discharge, no septal abnormalities noted. Tympanic membranes are normal and external auditory canals are clear. Oropharynx with no redness, swelling, or masses, exudates, or evidence of obstruction, uvula midline. Mucous membranes moist. Neck: Trachea midline, no thyromegaly or masses palpated, and no cervical lymphadenopathy. Supple, full range of motion without nuchal rigidity, or vertebral point tenderness. Chest/axilla: Normal chest wall appearance and motion. Nontender with no deformity. No lesions are appreciated. Cardiovascular: Regular rate and rhythm with a normal S1 and S2. No gallops, murmurs, or rubs. Normal PMI, no JVD. No pulse deficits. Respiratory: Lungs have equal breath sounds bilaterally, clear to auscultation and percussion. No rales, rhonchi or wheezes noted. No increased work of breathing, no retractions or nasal flaring. Abdomen/GI: Soft, with normal bowel sounds. No distension or tympany. No guarding or rebound. No evidence of tenderness throughout. Back: No spinal tenderness. No costovertebral tenderness. Skin: Warm, dry with normal turgor. Normal color with no rashes, no lesions, and no evidence of cellulitis. MS/ Extremity: Pulses equal, no cyanosis. Neurovascular intact. Right hip movements severely diminished, moderate to severe pain with small more month, not able to bear weight right lower extremity. Neuro: Awake and alert, GCS 15, oriented to person, place, time, and situation. Cranial nerves II-XII grossly intact. Motor strength 5/5 in all extremities. Sensory grossly intact. Psych: Awake, alert, with orientation to person, place and time. Behavior, mood, and affect are within normal limits Vital Signs: 19:58 BP 124 / 83; Pulse 96; Resp 18; Temp 98; Pulse Ox 100% ; rv 21:00 BP 118 / 54; Pulse 93; Resp 17 S; Pulse Ox 100% on R/A; ha1 21:30 BP 119 / 56; Pulse 90; Resp 16 S; Pulse Ox 96% on R/A; ha1 22:00 BP 115 / 60; Pulse 94; Resp 17 S; Pulse Ox 100% on R/A; ha1 23:00 BP 121 / 61; Pulse 87; Resp 16 S; Pulse Ox 98% on R/A; ha1 23:50 BP 122 / 64; Pulse 86; Resp 16 S; Pulse Ox 97% on R/A; ha1 Stephanie Coma Score: 19:58 Eye Response: spontaneous(4). Motor Response: obeys commands(6). Verbal Response: rv oriented(5). Total: 15. MDM: 20:37 Patient medically screened. sp4 23:06 Differential Diagnosis altered mental status, sepsis, flu. Data reviewed: vital signs, sp4 nurses notes. Consideration of Admission/Observation Escalation of care including admission/observation considered. Management of patient was discussed with the following: Machine Repairman: [facility] Accepting . ED course: 73-year-old female presents with lidocaine metastatic lesion to the right hip. Patient not able to ambulate. First established follow-up with [facility]. Patient was accepted transfer to [facility] for further evaluation. . 23:22 ED course: EXAM DESCRIPTION: CT - Chest Abdomen Pelvis W Cont - 11/11/2023 9:54 pm sp4 CLINICAL HISTORY: Chest and abdomen pain. cancer and abdominal pain COMPARISON: No comparisons TECHNIQUE: Approximately 100 mL nonionic IV contrast was administered to the patient. All CT scans are performed using dose optimization technique as appropriate and may include automated exposure control or mA/KV adjustment according to patient size. FINDINGS: 7 mm nodule is seen lateral right middle lobe.15 mm nodule is present in the medial right lung base. 7 mm nodule left lung base posteriorly.No pleural or pericardial effusion.Mildly enlarged right hilar lymph nodes. The liver demonstrates diffuse fatty infiltration. Spleen, pancreas, adrenal glands and kidneys are within normal limits. 3.2 cm right renal upper pole cyst. No bowel obstruction, free air, free fluid or abscess. Normal appendix. No pathologic lymphadenopathy in the abdomen or pelvis. 3.0 x 2.4 cm soft tissue mass is seen with destructive changes right femoral head/ neck junction. IMPRESSION: 3 cm soft tissue mass with destructive changes right femoral head/ neck junction likely bony metastasis. Bilateral pulmonary nodules noted, presumably metastatic in nature. Fatty liver. Signed By: Justin Aly MD. 11/10 20:24 Order name: CBC with Diff; Complete Time: 22:23 [facility] 11/10 20:24 Order name: CMP; Complete Time: 22:23 4 11/10 20:24 Order name: Lipase; Complete Time: 22:23 4 11/10 20:24 Order name: Urinalysis w/ reflexes; Complete Time: 22:23 4 11/10 20:25 Order name: CK; Complete Time: 22:23 4 11/10 20:25 Order name: PT-INR; Complete Time: 22:23 4 11/10 20:24 Order name: CT Chest, Abdomen, Pelvis - W/Contrast; Complete Time: 22:23 4 11/10 20:25 Order name: Extrem Venous W Compression Luis US; Complete Time: 22:23 4 11/10 20:24 Order name: IV Saline Lock; Complete Time: 20:29 sp4 11/10 20:24 Order name: Labs collected and sent; Complete Time: 20:29 sp4 11/10 20:24 Order name: [place]; Complete Time: 21:27 sp4 Administered Medications: 20:40 Drug: Ondansetron IVP 4 mg IVP once; over 2 minutes Route: IVP; Site: right antecubital;ha1 21:10 Follow up: Response: No adverse reaction ha1 23:55 Follow up: Response: No adverse reaction; Marked relief of symptoms; Pain is decreased; ha1 RASS: Alert and Calm (0) 20:43 Drug: NS 0.9% IV 1000 ml IV at 1 bolus Per protocol; 1000 mL bolus Route: IV; Rate: 1 ha1 bolus; Site: right antecubital; 20:43 Drug: Methocarbamol PO 1500 mg PO once Route: PO; ha1 21:10 Follow up: Response: No adverse reaction; Marked relief of symptoms ha1 21:00 Drug: morphine IVP or IV 6 mg IVP once over 4 mins Route: IVP; Infused Over: 4 mins; ha1 Site: right antecubital; 21:30 Follow up: Response: No adverse reaction; Pain is decreased; RASS: Alert and Calm (0) ha1 23:25 Drug: morphine IVP or IV 6 mg IVP once over 4 mins Route: IVP; Infused Over: 4 mins; ha1 Site: right antecubital; 23:55 Follow up: Response: No adverse reaction; Pain is decreased; RASS: Alert and Calm (0) ha1 Disposition Summary: 11/11/23 22:38 Transfer Ordered Notes: Transfer Location: Other Acute Care Facility sp4 Reason: Higher level of care sp4 Condition: Stable sp4 Problem: new sp4 Symptoms: have improved sp4 Accepting Physician: [facility] Attending (11/12/23 01:15) ha1 Diagnosis - Metastatic lesion right hip and femur, right adrenal mass, pulmonary nodules, sp4 metastatic renal carcinoma Forms: - Medication Reconciliation Form sp4 - SBAR form sp4 Signatures: Dispatcher [employer] Tiffanie Hernandez RN RN ha1 Jacinto Bucknre MD MD sp4 Corrections: (The following items were deleted from the chart) 20:24 20:24 CBC+H.LAB.BRZ ordered. EDMS EDMS 20:24 20:24 COMPREHENSIVE METABOLIC PANEL+C.LAB.BRZ ordered. EDMS EDMS 20:24 20:24 LIPASE+C.LAB.BRZ ordered. EDMS EDMS 20:24 20:24 Urinalysis+U.LAB.BRZ ordered. EDMS EDMS 20:25 20:24 Chest Abdomen Pelvis W Con+CT.RAD.BRZ ordered. EDMS EDMS 20:25 20:25 CREATINE PHOSPHOKINASE+C.LAB.BRZ ordered. EDMS EDMS 20:25 20:25 PROTIME (+INR)+COAG.LAB.BRZ ordered. EDMS EDMS 20:25 20:25 Extrem Venous W Compression Luis+US.RAD.BRZ ordered. EDMS EDMS 11/11 01:15 11/10 22:38 [facility] Attending sp4 ha1
[2023-11-12 01:48] VITALS: TEMP 98
[2023-11-12 02:11] VITALS: BP 122/64; O2SAT 97
== END 2023-11-12 01:15 ==
LOC: ER 19:55
DX: C79.51 Secondary malignant neoplasm of bone (principal); C64.1 Malignant neoplasm of right kidney, except renal pelvis; D35.01 Benign neoplasm of right adrenal gland; R91.8 Other nonspecific abnormal finding of lung field; E11.9 Type 2 diabetes mellitus without complications; I10 Essential (primary) hypertension
CPT/HCPCS: 85025; 81001; 36415; 82550; 85610; 83690; 80053; 71260; 74177; 93970; 51702; 96374; 99285; Q9967; J2405; J7030